=== PATIENT | female | born 1955 | race Caucasian/White ===

== ENCOUNTER 2018-01-18 14:15 | Emergency (ER) | payer OTHER, SELFPAY ==
[2018-01-18 14:15] VITALS: BP 178/101; PULSE 65; RESP 14; TEMP 36.3; O2SAT 100; BMI 24.9
--- NOTE | 2018-01-18 14:42 | RAD_ITS ---
STUDY: X-RAY - UNILATERAL RIBS ( RIGHT ) WITH CHEST REASON FOR EXAM: Female, 62 years old. Rib pain. TECHNIQUE - RIBS: 3 view(s) of the ribs. TECHNIQUE - CHEST: Single PA view of the chest. COMPARISON: Comparison is made with prior chest radiograph dated October 10, 2016. FINDINGS - RIBS: Normal visualized ribs without a demonstrated fracture. FINDINGS - CHEST: The lungs are clear and expanded. There is no demonstrated pleural abnormality. Normal size heart. Normal mediastinum and alfredo. Normal visualized pulmonary arteries. There is atherosclerotic tortuosity of the aortic arch and descending thoracic aorta. There are diffuse degenerative changes of the visualized thoracic spine. Normal visualized ribs, clavicles, and shoulders. Surgical clips are seen in the left upper abdomen. RAD/Ribs Uni Min 3V w/PA Chest IMPRESSION: RIBS: Normal x-ray examination of the ribs. CHEST: Normal x-ray examination of the chest. Electronically Signed: Gorge Diop MD at 15:16 EDT Tel [phone], Service support ,
--- NOTE | 2018-01-18 14:49 | ED.DCSUM_ITS ---
- ER Visit Summary Date of Service: 01/18/18 Chief Complaint: Chest pain History of Present Illness: The patient is a 62 F who states that on Sunday ( this being Sunday) she was in the yard doing mulch work when she felt a sudden pop and pain in her right mid ribs in the mid axillary line. She states it has been very sharp and worse when she moves her arm takes a deep breath and pushes on her rib. She notes a very minimal cough which is not unusual for her. No fevers. She denies any rash in the area. Physical Examination: Afebrile vital signs are stable Gen: Well-nourished well-developed Head: Normocephalic atraumatic Eyes: Perrl EOMI ENT: TMs clear no rhinorrhea moist mucous membranes Neck: Supple no lymphadenopathy no JVD nontender CVS: Regular rate rhythm no murmurs normal S1-S2 Respiratory: No distress clear to auscultation bilaterally patient has point tenderness in the right mid axillary line at about rib #5. This exactly reproduces her pain when I push on it. Abdomen: Soft nontender nondistended normal bowel sounds no masses Back: Nontender Extremity: Nontender no edema Skin: Normal color no rash Neuro: alert orientated ?3 CN II-XII intact normal strength sensation reflexes gait cerebellar Psych: Normal affect normal mood Test Results: Rib series was obtained and is negative for fracture. Emergency Department Course and Treatment: Patient will be discharged home with supportive care. Instructions for anti-inflammatories. Follow-up with primary care return if worsening. Impression: 1. Right chest wall strain This note was generated with [employer] dictation software. It may contain incorrect words, spelling, and punctuation that were not noted in review of the chart prior to signing ED Disposition - Plan for ED Patient: Disposition: Home or Assisted Living Chief Complaint: Chest Other Instructions: ED Strain Chest Wall Referrals: Lexi Newby DO [Primary Care Provider] - 1 Week if not improving
[2018-01-18 15:41] VITALS: BP 162/84; PULSE 83; RESP 18; O2SAT 99
== END 2018-01-18 15:42 | disposition home or self-care (01) ==
PROVIDERS: Emergency Provider Emergency Medicine
DX: S29.012A Strain of muscle and tendon of back wall of thorax, initial encounter (principal); X50.1XXA Overexertion from prolonged static or awkward postures, initial encounter; Y93.H2 Activity, gardening and landscaping; Y92.007 Garden or yard of unspecified non-institutional (private) residence as the place of occurrence of the external cause; Y99.8 Other external cause status
CPT/HCPCS: 71101; 99282

== ENCOUNTER 2018-05-24 10:48 | Emergency (ER) | payer OTHER, SELFPAY ==
[2018-05-24 10:51] VITALS: BP 179/119; PULSE 131; RESP 28; TEMP 36.2; BMI 22.7
--- NOTE | 2018-05-24 11:08 | ED.VISSUMM ---
- ER Visit Summary Date of Service: 05/24/18 Chief Complaint: Right third finger injury History of Present Illness: The patient is a 62 F presents to the emergency department with right third finger injury. The patient was using hedge clippers. She states that the branch was stuck and she reached, and accidentally incised the tip of her right third finger. She is right-hand dominant. She is unsure of her last tetanus. She denies other injury. Patient is otherwise healthy. She only takes daily multivitamins. Physical Examination: Exam is relatively unremarkable. Patient does have a 2 cm full-thickness laceration at the lateral aspect of the distal tip of the right third. It does involve the nail. 2 point discrimination is preserved. She is able to flex and extend. Capillary refill is less than 2 seconds. No other injury through the hand. Test Results: [] Emergency Department Course and Treatment: Patient underwent digital block immediately after she was evaluated. She did have significant relief of her pain. Tetanus is updated. Patient underwent plain films of the finger. She does have evidence of an open tuft fracture. The wound was irrigated with 300 cc of normal saline. I did scrub it with a surgical scrub brush. The nail was pulled back. I did trim the area that had avulsed. 2 5-0 gut sutures were used to close the nailbed. I then used 6 simple 5-0 Ethilon sutures to close the laceration. I did prison classification counselor the patient that there is concern that she may lose the tissue coverage of the distal tip because of the compromised blood supply, but there is good bone coverage at this time. I am going to give her follow-up with both plastics and orthopedics for reevaluation. Her tetanus is updated. She will be continued on oral antibiotics. I did prison classification counselor her that if her symptoms are worsening at all over the next 48 hours or not improving she needs to have this reevaluated. She is comfortable with this plan of care. Treatment Plan: [] Disposition: Discharge Impression: 1. Open tuft fracture right third finger with repair 2. Nailbed laceration right third finger with repair This note was generated with [employer] software. It may contain incorrect words, spelling, and punctuation that were not noted in review of the chart prior to signing ED Disposition - Plan for ED Patient: Chief Complaint: Wound Instructions: ED Fx Finger Open, ED Avulsion Nail Partial Prescriptions: Hydrocodone Bitart/Apap 5-325 [Scio 5MG-325MG] 1 tab PO Q6H PRN PRN 3 Days #10 tab PRN Reason: Pain Cephalexin [Keflex] 500 mg PO Q6 #40 cap Referrals: Saji Arauz MD [STAFF PHYSICIAN] - 2 Days for wound check Erlin Schaefer MD [STAFF PHYSICIAN] -
--- NOTE | 2018-05-24 11:10 | RAD_ITS ---
STUDY: X-RAY - RIGHT HAND REASON FOR EXAM: Female, 62 years old. Laceration overlying the distal portion of the third digit. TECHNIQUE: 3 view(s) of the hand. COMPARISON: None. FINDINGS: Normal radiocarpal articulation. Normal distal radioulnar joint. Normal visualized carpal bones. Normal carpal articulations Normal carpometacarpal articulation of the thumb. Normal second through fifth carpometacarpal joints. Normal metacarpi. Normal metacarpophalangeal joint of the thumb. Normal interphalangeal joint of the thumb. Normal proximal and distal phalanges of the thumb. Normal metacarpophalangeal joints of the second through fifth fingers. Normal proximal and distal interphalangeal joints of the second through fifth fingers. Nondisplaced fracture of the tuft of the distal phalanx of the third digit. Soft tissue swelling. No radiopaque foreign body is seen. RAD/Hand Min 3 Views IMPRESSION: Nondisplaced fracture of the tuft of the distal phalanx of the third digit. Electronically Signed: Gorge Diop MD at 15:07 EDT Tel [phone], Service support ,
[2018-05-24] MEDS: Diphth,Pertuss(Acell),Tet Vac 0.5 ML Vial IM (11:30)
[2018-05-24 11:31] VITALS: BP 140/102; PULSE 70; RESP 15; O2SAT 98
[2018-05-24] MEDS: Cephalexin 250 MG Capsule 500 MG PO (12:23)
[2018-05-24 12:26] VITALS: RESP 17
== END 2018-05-24 12:28 | disposition home or self-care (01) ==
LOC: ED 11:27
PROVIDERS: Emergency Provider Emergency Medicine
DX: S62.632B Displaced fracture of distal phalanx of right middle finger, initial encounter for open fracture (principal); S61.312A Laceration without foreign body of right middle finger with damage to nail, initial encounter; W26.8XXA Contact with other sharp object(s), not elsewhere classified, initial encounter; Y93.H2 Activity, gardening and landscaping
CPT/HCPCS: 11760; 73130; 90471; 90715; 99284

== ENCOUNTER 2019-07-28 11:17 | Emergency (ER) | payer OTHER, SELFPAY ==
[2019-07-28 11:18] VITALS: BP 168/80; PULSE 94; RESP 16; TEMP 36.3; O2SAT 98; BMI 23.3
--- NOTE | 2019-07-28 11:37 | RAD_ITS ---
STUDY: X-RAY - ACUTE ABDOMINAL SERIES REASON FOR EXAM: Female, 63 years old. Abdominal pain with nausea. TECHNIQUE: Single view of the chest. Supine, and erect view(s) of the abdomen were obtained. COMPARISON: None. FINDINGS: Comparison is made with prior chest radiograph dated January 18, 2018. The lungs are clear and expanded. Normal size heart. Normal mediastinum and alfredo. Normal visualized pulmonary arteries. There is atherosclerotic tortuosity of the aortic arch and descending thoracic aorta. There is a moderate amount of colonic fecal material. Surgical clips are seen in the epigastric region as well as in the left hemiabdomen. Prior tubal ligation. There are diffuse degenerative changes of the visualized lumbar spine. RAD/Acute Abdomen Inc Chest IMPRESSION: No acute abnormality is seen. Electronically Signed: Gorge Diop, at 12:27 EST , Service support ,
--- NOTE | 2019-07-28 11:37 | EKG12_ITS ---
Test Reason : AB PAIN Blood Pressure : / mmHG Vent. Rate : 079 BPM Atrial Rate : 079 BPM P-R Int : 126 ms QRS Dur : 078 ms QT Int : 374 ms P-R-T Axes : 026 027 046 degrees QTc Int : 428 ms Normal sinus rhythm Normal ECG Confirmed by EDGAR BIRD, AMBER ([id number]), newspaper photo editor KATE MCCLENDON ([id number]) on 07/30/2019 2:04:00 PM Referred By: TASIA SORIANO Confirmed By:AMBER HERNÁNDEZ MD
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
[2019-07-28 11:46] LABS: Absolute Lymphocyte Count 2.27 X10^3/uL (0.83-4.51); Absolute Neutrophil Count 5.9 X10^3/uL (2.0-7.7); Basophil# 0.07 X10^3/uL; Basophil% 0.7 % (0-1); Eosinophil# 0.11 X10^3/uL; Eosinophils% 1.1 % (0-5); Hematocrit 42.2 % (37-47); Hemoglobin 13.8 g/dL (12.0-15.0); Lymphocyte # 2.27 X10^3/ul (4.0); Lymphocyte % 23.7 % (19-41); Mean Corp Hgb Conc 32.7 g/dL (32-36); Mean Corpuscular Hgb 30.4 pg (27.0-32.0); Mean Platelet Vol. 10.2 fl (6.2-12.0); Monocyte# 1.18 X10^3/uL; Monocyte% 12.3 % (0-10); NRBC Flagged by Analyzer 0 % (0-5); Neutrophil # 5.93 X10^3/uL (2.7-7.7); Neutrophil % 61.9 % (47-70); Platelet Count 326 K/mm3 (150-450); RBC Distribution Width SD 44.6 fl (35.1-43.9); Red Blood Count 4.54 M/mm3 (4.2-5.4); White Blood Count 9.6 K/mm3 (4.4-11.0)
[2019-07-28] MEDS: 0.9% Normal Saline 1,000 ML 150 ML IV (12:18)
[2019-07-28 12:19] VITALS: BP 133/84; PULSE 66; RESP 14; O2SAT 98
[2019-07-28 12:24] LABS: AST(SGOT) 17 U/L (15-37); Alanine Aminotransfer ALT/SGPT 26 U/L (13-56); Albumin, Serum 3.8 g/dL (3.2-5.0); Alkaline Phosphatase 99 U/L (45-117); Anion Gap 8 (5-15); BUN 17 mg/dL (7-18); BUN/Creat Ratio 21.9 RATIO (10-20); Bilirubin, Direct 0.08 mg/dL (0.00-0.30); Calcium,Total 8.8 mg/dL (8.5-10.1); Chloride 106 mmol/L (98-107); Creatinine, Serum 0.78 mg/dL (0.55-1.02); EST Glomerular Filtration Rate 79 mL/min (>60); Est Glom Filt Rate - Afr Amer 96 mL/min (>60); Estimated Creatinine Clearance 54.98 ml/min; Globulin 4.1 g/dL (2.2-4.2); Glucose 43 mg/dL (74-106); Lipase 80 U/L (73-393); Potassium 3.5 mmol/L (3.5-5.1); Protein, Total 7.9 g/dL (6.4-8.2); Sodium Level 142 mmol/L (136-145)
[2019-07-28] MEDS: Dextrose 50%-Water 25 GM/50 ML DISP.SYRIN IV (12:25)
[2019-07-28 12:55] LABS: Bedside Glucose 216 mg/dL (70-110)
[2019-07-28 14:03] VITALS: BP 166/99; PULSE 58; RESP 16
[2019-07-28 14:06] LABS: Bedside Glucose 143 mg/dL (70-110)
== END 2019-07-28 14:03 | disposition home or self-care (01) ==
PROVIDERS: Emergency Provider Emergency Medicine; PCP Family Medicine
DX: R10.9 Unspecified abdominal pain (principal); K21.9 Gastro-esophageal reflux disease without esophagitis; I10 Essential (primary) hypertension; E78.5 Hyperlipidemia, unspecified; Z87.891 Personal history of nicotine dependence
CPT/HCPCS: 74022; 80048; 80076; 82962; 83690; 84484; 85025; 93005; 96365; 96375; 99285; J7030

== ENCOUNTER → 2020-09-14 13:50 | Outpatient (CLI) | payer MEDICARE, SELFPAY ==
--- NOTE | 2020-09-14 14:00 | BD_ITS ---
STUDY: DUAL ENERGY X-RAY ABSORPTIOMETRY / DXA REASON FOR EXAM: Female, 64 years old. [employer] -- HX OF SMOKING -- TAKES CALCIUM AND MULTIVITAMIN -- DOES HIGH AMOUNT OF EXERCISE -- HX OF FINGER FX -- BERTHA OF 2 INCHES TECHNIQUE: Bone Mineral Density (BMD) measurements of lumbar spine and bilateral hips were obtained. COMPARISON: None. FINDINGS: Lumbar Spine (L1-L4): g/cm2 (0.968) / T-score (-1.8) / Z-score (-0.2) Findings are suggestive of osteopenia with a moderate fracture risk. Left Femur Total: g/cm2 (0.789) / T-score (-1.7) / Z-score (-0.5) Left Femoral Neck: g/cm2 (0.734) / T-score (-2.2) / Z-score (-0.7) Right Femur Total: g/cm2 (0.769) / T-score (-1.9) / Z-score (-0.7) Right Femoral Neck: g/cm2 (0.724) / T-score (-2.3) / Z-score (-0.8) BD/Dexa Bone Density Study IMPRESSION: The patient is considered osteopenic as outlined below according to World [employer] Organization (WHO) criteria with a high fracture risk. Reference Information: The T-score is the number of standard deviations above or below the standard which is normal for young adults at their peak bone mineral density. The World Health Organization (WHO) interprets the T-scores as follows: Above -1 Normal bone density Between -1 and -2.5 Osteopenia Equal to / or below -2.5 Osteoporosis As a practical clinical guideline, osteopenia may be graded as follows: Mild -1 through -1.5 Moderate -1.6 through -2.0 Severe -2.1 through -2.4 The Z-score is the number of standard deviations above or below age-matched controls. A Z-score of less than -1.5 would be considered abnormal. References: 1. NIH Osteoporosis and Related Bone Diseases www osteo.org 2. International Society for Clinical Densitometry www iscd.org 3. National Osteoporosis Foundation www nof.org Electronically Signed: Gorge Diop, at 15:35 EST , Service support ,
== END ==
PROVIDERS: PCP Family Medicine; Referring Provider Family Medicine; Visit Provider Family Medicine
DX: M81.0 Age-related osteoporosis without current pathological fracture (principal)
CPT/HCPCS: 77080

== ENCOUNTER 2021-09-16 22:41 | Emergency (ER) | payer MEDICARE, SELFPAY ==
[2021-09-16 22:42] VITALS: BP 152/103; PULSE 93; RESP 15; TEMP 36.4; O2SAT 99; BMI 25.2
--- NOTE | 2021-09-16 23:07 | CT_ITS ---
STUDY: CT BRAIN WITHOUT CONTRAST REASON FOR EXAM: Female, 65 years old. head injury RADIATION DOSAGE (If Supplied By Facility): CTDIvol = ( 44.99 ) mGy, DLP = ( 812.98 ) mGycm TECHNIQUE: Transaxial CT imaging of the brain was performed without administration of intravenous contrast material. Individualized dose optimization techniques were used for this CT. COMPARISON: No relevant priors. FINDINGS: Normal soft tissue structures. Normal calvarium. Partially empty sella Normal size ventricles and extra-axial spaces for the patient''s age. Normal white matter tracts of the cerebral hemispheres. Normal basal ganglia and thalami. Normal brainstem. Normal cerebellum. There is no intracranial hemorrhage. There are no findings of an acute ischemic infarction. Normal visualized paranasal sinuses. CT/Brain/Head without Contrast IMPRESSION: Normal unenhanced CT scan of the brain. Electronically Signed: Preet Thibodeaux DO at 23:51 EST Tel , Service support ,
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
[2021-09-17 00:02] VITALS: BP 169/101
== END 2021-09-17 00:21 | disposition home or self-care (01) ==
PROVIDERS: Emergency Provider Emergency Medicine; PCP Family Medicine; Visit Provider Emergency Medicine
DX: S01.01XA Laceration without foreign body of scalp, initial encounter (principal); W19.XXXA Unspecified fall, initial encounter; Z87.891 Personal history of nicotine dependence
CPT/HCPCS: 12002; 70450; 99282

== ENCOUNTER → 2022-08-07 | Outpatient (CLI) | payer MEDICARE, SELFPAY ==
[2022-08-07 09:35] LABS: Erythrocyte Sedimentation Rate 13 mm/hr (0-30)
[2022-08-07 09:37] LABS: Absolute Lymphocyte Count 1.96 X10^3/uL (0.83-4.51); Absolute Neutrophil Count 3.6 X10^3/uL (2.0-7.7); Basophil# 0.07 X10^3/uL; Basophil% 1.1 % (0-1); Eosinophil# 0.13 X10^3/uL; Hematocrit 42.3 % (37-47); Hemoglobin 13.5 g/dL (12.0-15.0); Lymphocyte # 1.96 X10^3/ul (0.83-4.51); Lymphocyte % 30.5 % (19-41); Mean Corp Hgb Conc 31.9 g/dL (32-36); Mean Corpuscular Hgb 29.5 pg (27.0-32.0); Mean Corpuscular Volume 92.4 fL (81-99); Mean Platelet Vol. 10.6 fl (6.2-12.0); Monocyte# 0.66 X10^3/uL; Monocyte% 10.3 % (0-10); NRBC Flagged by Analyzer 0 % (0-5); Neutrophil # 3.58 X10^3/uL (2.7-7.7); Neutrophil % 55.8 % (47-70); Platelet Count 291 K/mm3 (150-450); RBC Distribution Width CV 13.5 % (11.6-14.6); RBC Distribution Width SD 45.8 fl (35.1-43.9); Red Blood Count 4.58 M/mm3 (4.2-5.4); White Blood Count 6.4 K/mm3 (4.4-11.0)
[2022-08-07 09:57] LABS: AST(SGOT) 19 U/L (15-37); Alanine Aminotransfer ALT/SGPT 27 U/L (13-56); Albumin, Serum 3.9 g/dL (3.2-5.0); Alkaline Phosphatase 100 U/L (45-117); Anion Gap 4 (5-15); BUN 19 mg/dL (7-18); BUN/Creat Ratio 26.6 RATIO (10-20); Calcium,Total 8.9 mg/dL (8.5-10.1); Chloride 104 mmol/L (98-107); Creatinine, Serum 0.71 mg/dL (0.55-1.02); EST Glomerular Filtration Rate 87 mL/min (>60); Est Glom Filt Rate - Afr Amer 105 mL/min (>60); Glucose 102 mg/dL (74-106); LDH 199 U/L (84-246); Potassium 4.1 mmol/L (3.5-5.1); Protein, Total 7.9 g/dL (6.4-8.2); Sodium Level 138 mmol/L (136-145)
[2022-08-07 09:58] LABS: CRP < 2.90 mg/L (0.0-3.0)
[2022-08-08 14:08] LABS: Anti-Centromere B Ab <0.2 AI (0.0-0.9); Anti-Chromatin <0.2 AI (0.0-0.9); Anti-Jo <0.2 AI (0.0-0.9); Anti-Scleroderma-70 AB >8.0 AI (0.0-0.9); RNP Ab <0.2 AI (0.0-0.9); SJOGREN'S Anti-SS-A test < 0.2 AI (0.0-0.9); SJOGREN'S Anti-SS-B test < 0.2 AI (0.0-0.9); Smith Ab <0.2 AI (0.0-0.9)
[2022-08-08 16:06] LABS: Anti-dsDNA Ab <1 IU/mL (0-9)
[2022-08-08 16:09] LABS: Endomysial Antibody IgA Negative (Negative)
[2022-08-08 16:33] LABS: Immunoglobulin A 151 mg/dL (87-352); t-Transglutaminase IgA <2 U/mL (0-3)
[2022-08-11 12:08] LABS: Alpha-1-Globulins 0.2 g/dL (0.0-0.4); Alpha-2-Globulins 0.7 g/dL (0.4-1.0); Cytoplasmic Ab (C-ANCA) <1:20 titer (Neg:<1:20); Gamma Globulin 1.3 g/dL (0.4-1.8); Immunoglobulin A 143 mg/dL (87-352); Immunoglobulin E 16 IU/mL (6-495); Immunoglobulin G 1274 mg/dL (586-1602); Immunoglobulin M 73 mg/dL (26-217); PROEL- TOTAL PROTEIN 7.3 g/dL (6.0-8.5)
[2022-08-11 18:30] LABS: Perinuclear Ab (P-ANCA) <1:20 titer (Neg:<1:20)
== END | disposition home or self-care (01) ==
LOC: LAB 09:11
PROVIDERS: PCP Family Medicine; Referring Provider Nurse Practitioner Adult Health; Visit Provider Nurse Practitioner Adult Health
DX: R10.30 Lower abdominal pain, unspecified (principal); M34.9 Systemic sclerosis, unspecified; R13.10 Dysphagia, unspecified; R11.0 Nausea
CPT/HCPCS: 36415; 80053; 82784; 82785; 83516; 83615; 84165; 85025; 85652; 86140; 86225; 86235; 86255; 86256; 86334

== ENCOUNTER → 2022-08-14 | Outpatient (CLI) | payer MEDICARE, SELFPAY ==
--- NOTE | 2022-08-14 09:45 | RAD_ITS ---
STUDY: X-RAY - ESOPHAGUS (BARIUM SWALLOW) WITH FLUOROSCOPY REASON FOR EXAM: Female, 66 years old. Dysphagia, scleroderma TECHNIQUE: 15 view(s) of the esophagus were obtained following swallowing of barium. FLUOROSCOPY TIME (if supplied): (30 seconds) minutes/seconds COMPARISON: Comparison is made with prior study dated 09/07/2015. FINDINGS: There is no demonstrated esophageal foreign body. There is evidence of a decreased peristaltic movement throughout the esophagus. Small sliding hernia with gas esophageal reflux. The patient ingested a 12 mm tablet of barium without any difficulty. There is atherosclerotic calcification of the aortic arch with tortuosity of the descending aorta. Normal visualized pulmonary parenchyma. There are diffuse degenerative changes of the visualized thoracic spine. RAD/Esophagus Dual Contrast IMPRESSION: Decreased peristaltic movement of the esophagus with the gastroesophageal reflux. Electronically Signed: Gorge Diop MD at 14:24 EST ,
== END | disposition home or self-care (01) ==
LOC: RAD 09:37
PROVIDERS: PCP Family Medicine; Visit Provider Nurse Practitioner Adult Health
DX: R13.10 Dysphagia, unspecified (principal); M34.9 Systemic sclerosis, unspecified
CPT/HCPCS: 74221

== ENCOUNTER → 2022-09-05 | Outpatient (CLI) | payer MEDICARE, SELFPAY ==
--- NOTE | 2022-09-05 17:40 | CT_ITS ---
STUDY: CT ABDOMEN AND PELVIS WITH CONTRAST REASON FOR EXAM: Female, 66 years old. lower abd pain -- oral and iv RADIATION DOSAGE (If Supplied By Facility): CTDIvol = ( 10.58 ) mGy, DLP = ( 370.79 ) mGycm TECHNIQUE: Transaxial images were obtained from the dome of the diaphragm to the symphysis pubis with oral contrast. IV 100mL [id number]-[id number] was administered. Sagittal and coronal images were reconstructed. Individualized dose optimization techniques were used for this CT. COMPARISON: And 814 FINDINGS: The visualized lung bases are unremarkable. The visualized portions of the heart are within normal limits. Normal liver. Normal gallbladder and extrahepatic biliary system. Normal spleen. Normal pancreas. Normal bilateral adrenal glands. 4.5 cm cyst in the midsection the right kidney. Normal left kidney. There is a small hiatal hernia. Status post gastric surgery, possibly gastric bypass. Normal small intestine. Normal colon. There is non-visualization of the appendix. Normal abdominal aorta. Normal inferior vena cava. Normal retroperitoneum. Normal urinary bladder. Status post bilateral tubal ligation. Normal abdominal wall. Normal osseous structures. CT/Abdomen/Pelvis WITH Contrast IMPRESSION: No acute abnormality. Electronically Signed: Matteo Machado MD at 18:25 [facility] ,
== END | disposition home or self-care (01) ==
LOC: CT 17:37
PROVIDERS: PCP Family Medicine; Visit Provider Nurse Practitioner Adult Health
DX: R10.30 Lower abdominal pain, unspecified (principal)
CPT/HCPCS: 74177; Q9967

== ENCOUNTER 2022-10-03 12:10 | Day surgery (SDC) | payer MEDICARE, SELFPAY ==
[2022-10-03] VITALS (7 sets, daily range): BP systolic 98–142; BP diastolic 51–99; PULSE 47–74; RESP 12–18; TEMP 36.1–36.4; O2SAT 97–100; BMI 23.4
[2022-10-03] MEDS: Lactated Ringers 1,000 ML 15 ML IV (12:36)
--- NOTE | 2022-10-03 13:22 | HP.PCM_ITS ---
History and Physical Date of Admission: 10/03/22 66 F who presents to the office today for choking when eating, heartburn, abdominal pain. Symptoms have been bothersome for about 6 months. Nausea especially in morning, takes occasional pepto bismol with partial relief; can have intermittent nausea other times of the day too. No vomiting. A thick white acidic mucus was coming up at night, less so now. Gets full quickly, not a new issue--since having Bailey en Y in 2012. Takes esomeprazole 40 mg daily but it doesn't help with her symptoms. Gets heartburn. Couldn't tolerate sucralfate pills, too big, and liquid sucralfate was too expensive; so she tried crushing the pill and putting it in small amt of liquid but no relief after 3 wks. Food feels like it gets stuck in the lower esophagus. Had dilation of esophageal stricture once years ago. She tried to have esophageal manometry once but didn't tolerate it. She has scleroderma, CREST. Hx of Allen's esophagus; no Allen's on biopsy at her last EGD in 2020. Intermittent grabbing pain 2-3x per day in lower abdomen, x years, has gotten worse, others have noticed when it occurs. This pain can wake her up. Not related to BMs, no pattern she can discern. BM 2-3x every morning. Stool is usually formed. No melena or hematochezia. Lots of stress right now. 11/3020 EGD--esophageal changes consistent with short segment Allen's; evidence of gastric bypass; examined jejunum was normal; biopsies from gastric remnant negative, no H pylori; negative for Allen's; and colonoscopy--Dr Quiles at [facility] reported entire colon appeared normal, recommended repeat in 5 yrs for surveillance due to FH colon cancer. Mother had colon cancer age 80. ROS Const Constitutional: No fatigue ENT ENT: Positive for difficulty swallowing Gastro GI: Positive for abdominal pain, heartburn, difficulty swallowing and nausea/dyspepsia; No belching, bloating, change in bowel habits, change in stool character, coffee ground emesis, constipation, cramping, diarrhea, feeling full early, excessive flatus, incontinent of stools, Vomiting blood/hematemesis, Blood in stool, loose stools, Black,tarry stools, pain with swallowing, vomiting or other Musc Musculoskeletal: No joint pain Skin Skin: No yellowing of the eye or itchy eyes Psych Psychiatric: No anxiety and No depression Endo Endocrine: No fatigue Aller/Imm Allergy/Immunologic: No itchy eyes Rylan/Lymp Hematologic/Lymphatic: No easy bleeding or easy bruising Exam Const General: cooperative and comfortable Orientation: alert, awake and oriented x3 HENMT Other: scleroderma facies, mild Eyes Conjunctivae: conjunctivae normal Sclera: sclerae normal Resp Effort & Inspection: normal respiratory effort GI Inspection: normal to inspection Palpation: soft, no hepatosplenomegaly, no masses and tender in the LLQ, in the RLQ and in the LUQ Neuro Gait: normal gait Quality Reporting Tobacco Screening ([facility] 138) Smoking Status: Former smoker Assessment and Plan Assessment and Plan (1) Dysphagia: ?Status:?Acute ?Plan: 66 yr old female with GERD, hx Allen's, dysphagia, hx esophageal stricture, scleroderma, abdominal pain. EGD to eval for Allen's, stricture, dysmotility. May need manometry, especially in the setting of scleroderma, will decide after EGD. Esophagram to eval for achalasia Increase esomeprazole from 20 mg to 40 mg QAM Labs today CT abd pel w/ oral and IV contrast to evaluate lower abdominal pain f/u after EGD (2) Systemic sclerosis: ?Status:?Chronic ?Plan: as above (3) Abdominal pain, lower: ?Status:?Acute ?Plan: as above (4) Nausea: ?Status:?Acute ?Plan: as above ? ? ? Orders: Orders Esophagus Dual Contrast Today M34.9 - Systemic sclerosis, unspecified, R13.10 - Dysphagia, unspecified ? Comprehensive Metabolic Profil Today M34.9 - Systemic sclerosis, unspecified, R10.30 - Lower abdominal pain, unspecified, R11.0 - Nausea, R13.10 - Dysphagia, unspecified ? CRP Today M34.9 - Systemic sclerosis, unspecified, R10.30 - Lower abdominal pain, unspecified, R11.0 - Nausea, R13.10 - Dysphagia, unspecified ? LDH Today M34.9 - Systemic sclerosis, unspecified, R10.30 - Lower abdominal pain, unspecified, R11.0 - Nausea, R13.10 - Dysphagia, unspecified ? CBC W/Diff, Automated Today I10 - Essential (primary) hypertension, M34.9 - Systemic sclerosis, unspecified, R10.30 - Lower abdominal pain, unspecified, R11.0 - Nausea, R13.10 - Dysphagia, unspecified ? Erythrocyte Sed Rate Today M34.9 - Systemic sclerosis, unspecified, R10.30 - Lower abdominal pain, unspecified, R11.0 - Nausea, R13.10 - Dysphagia, unspecified ? [place] Comprehensive Panel Today M34.9 - Systemic sclerosis, unspecified, R10.30 - Lower abdominal pain, unspecified, R11.0 - Nausea, R13.10 - Dysphagia, unspecified ? ANCA Today M34.9 - Systemic sclerosis, unspecified, R10.30 - Lower abdominal pain, unspecified, R11.0 - Nausea, R13.10 - Dysphagia, unspecified ? Celiac Disease Profile Today M34.9 - Systemic sclerosis, unspecified, R10.30 - Lower abdominal pain, unspecified, R11.0 - Nausea, R13.10 - Dysphagia, unspecified ? Immunoglobulins G/A/M/E Today M34.9 - Systemic sclerosis, unspecified, R10.30 - Lower abdominal pain, unspecified, R11.0 - Nausea, R13.10 - Dysphagia, unspecified ? ANDREA + Protein Elect, Serum Today M34.9 - Systemic sclerosis, unspecified, R10.30 - Lower abdominal pain, unspecified, R11.0 - Nausea, R13.10 - Dysphagia, unspecified ? Medications: New esomeprazole magnesium 40 mg? PO QAM 90 caps 3RF ? ? I have examined the patient and the H&P has been reviewed. There are no clinical changes since date of exam.
--- NOTE | 2022-10-03 13:30 | EGD_PTH ---
PATIENT: LUIS FRAGA LOC: EN U#:[id number] AGE/SX: 66/F ROOM: RE10/03/[address]: Dr. Lavon Lewis DO : 1955 BED: DIS: 10/03/2022 SPEC #: [id number] RECD: 10/03/22 17:05 STATUS: DEBBIE MARTÍN #: [id number] DINORAH: 10/03/22 13:[address]: Lavon Lewis DEPT: SURGICAL PATHOLOGY RECD BY: Heather Lepe ENTERED: 10/04/22 08:32 SP TYPE: EGD BIOPSY [facility] DR: Dr. Theo Ma MD Tissues: A - COLON BIOPSY B - Esophagus, NOS Procedures: Special Stain Group II Special Stain Group I Surgery Specimen Level IV GMS Stain (control) Alcian Blue/PAS (control) HEADER OPERATION: EGD ([facility] [place] biopsy PRE-OP DIAGNOSIS: Dysphagia, system sclerosis, lower abdominal pain TISSUE SUBMITTED: A ? Anastomosis ulcer biopsy, B ? Distal esophagus biopsy MICROSCOPIC DIAGNOSIS A. Anastomotic ulcer, biopsy: Fragments of gastric enteric tissue with focal mucosal ulceration and associated acute and chronic inflammation. Fungal organisms consistent with Lorrie species. See comment. B. Distal esophagus, biopsy: Gastroesophageal junctional mucosa with chronic inflammation. No evidence of goblet cell metaplasia. See comment. AM:beni 10/05/2022 COMMENT A. GMS stain with matched control was used in the evaluation of this case. B. Alcian blue/PAS stain with matched control supports the above diagnosis. MICROSCOPIC DESCRIPTION Slides are reviewed. GROSS DESCRIPTION A - Received in fixative is one container labeled with the patient's name and designated anastomosis ulcer. The specimen consists of two irregular fragments of light rutledge soft tissue that in aggregate measure 0.8 x 0.4 x 0.1 cm. The specimen is totally submitted in one cassette. B - Received in fixative is one container labeled with the patient's name and designated distal esophagus. The specimen consists of multiple irregular fragments of light rutledge soft tissue that in aggregate measure 0.8 x 0.4 x 0.1 cm. The specimen is totally submitted in one cassette. / YURY:beni 10/04/2022 TC:3 CPT: 47470 x2, 99024, 76578
--- NOTE | 2022-10-03 14:20 | OP.EGD_ITS ---
Patient Name: Letty Londono Procedure Date: 10/03/2022 1:17 PM Date of : 1955 Age: 66 Procedure: Upper GI endoscopy Indications: Epigastric abdominal pain, Dysphagia Providers: Lavon Lewis DO Medicines: Monitored Anesthesia Care Patient Profile: This is a 66 year old female. Refer to note in patient chart for documentation of history and physical. Patient has symptoms of acute epigastric abdominal pain and dysphagia with solids. Complications: No immediate complications. Procedure: Pre-Anesthesia Assessment: - Prior to the procedure, a History and Physical was performed, and patient medications and allergies were reviewed. The risks and benefits of the procedure and the sedation options and risks were discussed with the patient. All questions were answered and informed consent was obtained. Patient identification and proposed procedure were verified by the physician in the pre-procedure area. Mental Status Examination: alert and oriented. Airway Examination: normal oropharyngeal airway and neck mobility. CV Examination: normal. Prophylactic Antibiotics: The patient does not require prophylactic antibiotics. Prior Anticoagulants: The patient has taken no previous anticoagulant or antiplatelet agents. ASA Grade Assessment: II - A patient with mild systemic disease. After reviewing the risks and benefits, the patient was deemed in satisfactory condition to undergo the procedure. The anesthesia plan was to use monitored anesthesia care (MAC). Immediately prior to administration of medications, the patient was re-assessed for adequacy to receive sedatives. The heart rate, respiratory rate, oxygen saturations, blood pressure, adequacy of pulmonary ventilation, and response to care were monitored throughout the procedure. The physical status of the patient was re-assessed after the procedure. After obtaining informed consent, the endoscope was passed under direct vision. Throughout the procedure, the patient's blood pressure, pulse, and oxygen saturations were monitored continuously. The gastroscope was introduced through the mouth, and advanced to the second part of duodenum. The upper GI endoscopy was accomplished without difficulty. The patient tolerated the procedure well. Scope In: 2:08:17 PM Scope Out: 2:12:33 PM Total Procedure Duration Time 0 hours 4 minutes 16 seconds Findings: LA Grade B (one or more mucosal breaks greater than 5 mm, not extending between the tops of two mucosal folds) esophagitis with no bleeding was found 35 to 36 cm from the incisors. Biopsies were taken with a cold forceps for histology. Verification of patient identification for the specimen was done. Estimated blood loss was minimal. 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 The gastrojejunal anastomosis was characterized by edema and ulceration. This was traversed. The xarzd-ol-awyvkxg limb was characterized by healthy appearing mucosa. The jejunojejunal anastomosis was characterized by healthy appearing mucosa. The wlhociil-lt-okiclta limb was not examined as it could not be found. One benign-appearing, intrinsic stenosis was found 20 to 21 cm from the incisors. This stenosis was moderately severe and. The stenosis was traversed. A guidewire was placed and the scope was withdrawn. Dilation was performed with a Savary dilator with no resistance at 42 Fr. The dilation site was examined and showed moderate improvement in luminal narrowing. Estimated blood loss was minimal. The examined jejunum was normal. Impression: - LA Grade B reflux esophagitis. Biopsied. - Bailey-en-Y gastrojejunostomy with gastrojejunal anastomosis characterized by edema and ulceration. - Benign-appearing esophageal stenosis. Dilated. - Normal examined jejunum. Recommendation: - Discharge patient to home. - Resume previous diet. - Continue present medications. - Await pathology results. - Repeat upper endoscopy in 5 months to evaluate the response to therapy. - Use misoprostol 100 micrograms PO QID for 12 weeks. Procedure Code(s): --- Professional --- 12568, Esophagogastroduodenoscopy, flexible, transoral; with insertion of guide wire followed by passage of dilator(s) through esophagus over guide wire 68608, 59, Esophagogastroduodenoscopy, flexible, transoral; with biopsy, single or multiple CPT copyright 2017 [employer]. All rights reserved. The codes documented in this report are preliminary and upon decorating instructor review may be revised to meet current compliance requirements. Lavon Lewis DO 10/03/2022 2:20:16 PM This report has been signed electronically. Number of Addenda: 0 Note Initiated On: 10/03/2022 1:17 PM
--- NOTE | 2022-10-03 14:21 | OP.CCLET_ITS ---
10/03/2022 Theo Ma MD Re : Upper GI endoscopy procedure for Letty Londono Dear Dr. Ma This procedure was performed on Monday, October 03, 2022. My impressions and recommendations are as follows: Impressions : - LA Grade B reflux esophagitis. Biopsied. - Bailey-en-Y gastrojejunostomy with gastrojejunal anastomosis characterized by edema and ulceration. - Benign-appearing esophageal stenosis. Dilated. - Normal examined jejunum. Recommendations : - Discharge patient to home. - Resume previous diet. - Continue present medications. - Await pathology results. - Repeat upper endoscopy in 5 months to evaluate the response to therapy. - Use misoprostol 100 micrograms PO QID for 12 weeks. My findings are described in the full procedure note, which is enclosed. If I can be of further assistance, please feel free to contact me at . Sincerely, Lavon Friend, 10/03/2022 2:20:16 PM This report has been signed electronically.
== END 2022-10-03 15:07 | disposition home or self-care (01) ==
LOC: EN 12:12 → AC 12:14
PROVIDERS: PCP Family Medicine; Referring Provider Family Medicine; Visit Provider Internal Medicine Gastroenterology
PROC: 0DJ08ZZ Inspection of Upper Intestinal Tract, Via Natural or Artificial Opening Endoscopic (ICD-10-PCS; CPT 43235; principal; 2022-10-03 13:25)
DX: K25.3 Acute gastric ulcer without hemorrhage or perforation (principal); K22.2 Esophageal obstruction; K25.7 Chronic gastric ulcer without hemorrhage or perforation; K21.00 Gastro-esophageal reflux disease with esophagitis, without bleeding; E61.1 Iron deficiency; Z79.899 Other long term (current) drug therapy; Z87.891 Personal history of nicotine dependence
CPT/HCPCS: 43248; 43239; 88305; 88312; 88313; J7120; J2405

== ENCOUNTER 2023-02-19 06:01 | Day surgery (SDC) | payer MEDICARE, SELFPAY ==
--- NOTE | 2023-02-19 | IMM_PTH ---
PATIENT: LUIS FRAGA LOC: EN U#:[id number] AGE/SX: 67/F ROOM: RE02/19/[address]: Dr. Lavon Lewis DO : 1955 BED: DIS: 02/19/2023 SPEC #: [id number] RECD: 02/20/23 12:56 STATUS: DEBBIE REQ #: [id number] DINORAH: 02/19/23 00:[address]: Lavon Lewis DEPT: IMMUNOHISTOCHEMISTRY RECD BY: Lottie Rosenthal ENTERED: 02/20/23 12:57 SP TYPE: IMMUNO OTHR DR: Dr. Theo Ma MD Tissues: Esophagus, NOS Procedures: P53 (initial) KI-67 (add) PHYSICIAN & INSTITUTION [place] [id number] SPECIMEN INFORMATION: Tissue Source: Distal esophagus Clinical Info: Gastrojejunal ulcer, GERD, Lorrie infection, difficulty swallowing Specimen Number: [id number] CPT code: 32183, 91720 METHODOLOGY: Deparaffinized sections of prefer/formalin-fixed tissue or PAP/DQ stained slides are incubated with monoclonal/polyclonal antibodies/oligonucleotide probes. Localization is made via biotin free immunoperoxidase method. Appropriate controls are performed and reacted as expected. Results on target cell population are indicated in the following table: RESULTS: ANTIBODY / CLONE RESULT P53 (DO-7) negative Ki-67 (30-9) positive, very low These tests were developed and their performance characteristics determined by [facility]. They may not have been cleared or approved by the U.S. Food and Drug Administration. The FDA has determined that such clearance or approval is not necessary. The above immunohistochemical/dualISH markers are ordered and reviewed by the Pathologist. INTERPRETATION: Distal esophagus, biopsy: Negative for dysplasia. YURY:beni 02/21/2023
[2023-02-19 06:29] VITALS: BP 141/80; PULSE 66; RESP 16; TEMP 36.2; O2SAT 97; BMI 24.4
[2023-02-19] MEDS: Lactated Ringers 1,000 ML 15 ML IV (06:29)
--- NOTE | 2023-02-19 07:09 | PCM.HP.BLA ---
History and Physical Date of Admission: 02/19/23 67 F who presents to the office today for f/u EGD that was indicated for heartburn, dysphagia, hx Allen's. EGD revealed LA grade B esophagitis, esophageal stenosis which Dr Lewis dilated, negative Allen's esophagus; edema and ulcerations at Bailey en Y gastrojejunostomy, biopsies there were positive for Lorrie, as well as acute and chronic inflammation. Dr Lewis recommended treatment with misoprostal 100 mcg QID x 12 wks but insurance denied it. Liquid sucralfate is cost prohibitive. She continues to have nausea especially in the morning. Heartburn is controlled. At her 07/2022 appt we increased esomeprazole from 20 mg to 40 mg QAM. No c/o abd pain at this time. Less dysphagia since Dr Lewis dilated stricture, less food sticking. No vomiting. BM 2-3x every morning. Stool is usually formed. No melena or hematochezia. 07/2022 labs: unremarkable, already know about scleroderma 08/2022 CT abd pel w/ oral and IV contrast: unremarkable 08/2022 Esophagram:?Decreased peristaltic movement of the esophagus with the gastroesophageal reflux. She tried to have esophageal manometry once but didn't tolerate it. She has scleroderma, CREST. 10/03/22 EGD Impression: ? - LA Grade B reflux esophagitis. Biopsied. ? - Bailey-en-Y gastrojejunostomy with ? gastrojejunal anastomosis characterized by ? edema and ulceration. ? - Benign-appearing esophageal stenosis. Dilated. ? - Normal examined jejunum. Recommendation: ? - Discharge patient to home. ? - Resume previous diet. ? - Continue present medications. ? - Await pathology results. ? - Repeat upper endoscopy in 5 months to ? evaluate the response to therapy. ? - Use misoprostol 100 micrograms PO QID for 12 ? weeks. MICROSCOPIC DIAGNOSIS A.? Anastomotic ulcer, biopsy: Fragments of gastric enteric tissue with focal mucosal ulceration and associated acute and chronic inflammation. ?Fungal organisms consistent with Lorrie species. ?See comment. B.? Distal esophagus, biopsy: ?Gastroesophageal junctional mucosa with chronic inflammation. ?No evidence of goblet cell metaplasia. ?See comment. ROS Const Constitutional: No fatigue ENT ENT: No difficulty swallowing Gastro GI: Positive for abdominal pain, change in bowel habits, diarrhea, heartburn and nausea/dyspepsia; No belching, bloating, change in stool character, coffee ground emesis, constipation, cramping, difficulty swallowing, feeling full early, excessive flatus, incontinent of stools, Vomiting blood/hematemesis, Blood in stool, loose stools, Black,tarry stools, pain with swallowing, vomiting or other Musc Musculoskeletal: Positive for back pain and restless legs; No joint pain Skin Skin: No yellowing of the eye or itchy eyes Neuro Neurology: Positive for restless legs Psych Psychiatric: No anxiety and No depression Endo Endocrine: No fatigue Aller/Imm Allergy/Immunologic: No itchy eyes Rylan/Lymp Hematologic/Lymphatic: No easy bleeding or easy bruising Exam Const General: cooperative, comfortable and no acute distress Nutritional Appearance: average body habitus Orientation: alert, awake and oriented x3 Quality Reporting Tobacco Screening ([facility] 138) Smoking Status: Former smoker Assessment and Plan Assessment and Plan (1) Gastrojejunal ulcer: ?Status:?Acute ?Plan: 67 yr old female with nausea, GERD, dysphagia gastrojejunal anastomotic ulcers and Lorrie We reviewed her EGD results as well as labs (unremarkable) and CT (unremarkable) and esophagram (decreased motility, due to CREST) Heartburn now controlled since esomeprazole increased to 40 mg QAM Dysphagia is improved since esophageal stricture was dilated She tried esophageal manometry in the past but didn't tolerate it, likely has esophageal dysmotility due to CREST, could consider trying manometry later Will treat Lorrie with fluconazole We need to treat her anastomotic ulcers with misoprostal, will try again to get that approved Repeat EGD [address] Lewis, f/u 2 wks in office to review results (2) GERD (gastroesophageal reflux disease): ?Status:?Chronic ?Plan: as above (3) Lorrie infection: ?Status:?Acute ?Plan: as above (4) Difficulty swallowing: ?Status:?Chronic ?Plan: as above ? ? ? Medications: New fluconazole 100 mg? PO DAILY 14 tabs 0RF ? ? misoprostol 100 mcg? PO QPCHS 12 weeks 336 tabs 0RF anastomotic ulcers ? ? Discontinued sucralfate ?? Take one hour before meals/meds or two hours after ?? Discontinued Reason:? Cost Prohibitive 10 mL? PO QAC 1,000 mL 1RF ? ? I have examined the patient and the H&P has been reviewed. There are no clinical changes since date of exam.
--- NOTE | 2023-02-19 07:15 | EGD_PTH ---
PATIENT: LUIS FRAGA LOC: EN U#:[id number] AGE/SX: 67/F ROOM: RE02/19/[address]: Dr. Lavon Lewis DO : 1955 BED: DIS: 02/19/2023 SPEC #: [id number] RECD: 02/19/23 09:37 STATUS: DEBBIE REYazan #: [id number] DINORAH: 02/19/23 07:[address]: Lavon Lewis DEPT: SURGICAL PATHOLOGY RECD BY: Heather Lepe ENTERED: 02/19/23 11:57 SP TYPE: EGD BIOPSY DHIRAJ DR: Dr. Theo Ma MD Tissues: Esophagus, NOS Procedures: Special Stain Group II Surgery Specimen Level IV Alcian Blue/PAS (control) HEADER OPERATION: EGD ([facility] [place] with biopsy PRE-OP DIAGNOSIS: Gastrojejunal ulcer; GERD; Lorrie infection; difficulty swallowing TISSUE SUBMITTED: Distal esophagus MICROSCOPIC DIAGNOSIS Distal esophagus, biopsy: Fragments of gastroesophageal mucosa with focal intestinal metaplasia (goblet cell metaplasia), consistent with Allen?s esophagus. Chronic inflammation. Negative for dysplasia. See comment. YURY:beni 02/20/2023 COMMENT Alcian blue/PAS stain with matched control is used in the evaluation of the specimen. Immunohistochemistry ([id number]) for P53 and Ki-67 will be performed and results will be reported separately. MICROSCOPIC DESCRIPTION Slides are reviewed. GROSS DESCRIPTION Received in fixative is one container labeled with the patient's name and designated distal esophagus. The specimen consists of multiple irregular fragments of light rutledge soft tissue that in aggregate measure 0.8 x 0.3 x 0.1 cm. The specimen is totally submitted in one cassette. / YURY:beni 02/19/2023 TC:5 CPT: 77775, 67479
[2023-02-19 07:24] VITALS: BP 141/80; BP 88/66; PULSE 61; RESP 14; TEMP 36.4; O2SAT 97
--- NOTE | 2023-02-19 07:24 | OP.EGD_ITS ---
Patient Name: Letty Londono Procedure Date: 02/19/2023 7:06 AM Date of : 1955 Age: 67 Procedure: Upper GI endoscopy Indications: Heartburn, Suspected esophageal reflux Providers: Lavon Lewis DO Medicines: Monitored Anesthesia Care Patient Profile: This is a 67 year old female. Refer to note in patient chart for documentation of history and physical. Patient has symptoms of chronic dysphagia, chronic heartburn and chronic nausea. Complications: No immediate complications. Procedure: Pre-Anesthesia Assessment: - Prior to the procedure, a History and Physical was performed, and patient medications and allergies were reviewed. The risks and benefits of the procedure and the sedation options and risks were discussed with the patient. All questions were answered and informed consent was obtained. Patient identification and proposed procedure were verified by the physician in the pre-procedure area. Mental Status Examination: alert and oriented. Airway Examination: normal oropharyngeal airway and neck mobility. Respiratory Examination: clear to auscultation. CV Examination: normal. Prophylactic Antibiotics: The patient does not require prophylactic antibiotics. Prior Anticoagulants: The patient has taken no previous anticoagulant or antiplatelet agents. After reviewing the risks and benefits, the patient was deemed in satisfactory condition to undergo the procedure. The anesthesia plan was to use monitored anesthesia care (MAC). Immediately prior to administration of medications, the patient was re-assessed for adequacy to receive sedatives. The heart rate, respiratory rate, oxygen saturations, blood pressure, adequacy of pulmonary ventilation, and response to care were monitored throughout the procedure. The physical status of the patient was re-assessed after the procedure. After obtaining informed consent, the endoscope was passed under direct vision. Throughout the procedure, the patient's blood pressure, pulse, and oxygen saturations were monitored continuously. The gastroscope was introduced through the mouth, and advanced to the second part of duodenum. The upper GI endoscopy was accomplished without difficulty. The patient tolerated the procedure well. Scope In: 7:15:07 AM Scope Out: 7:18:38 AM Total Procedure Duration Time 0 hours 3 minutes 31 seconds Findings: LA Grade B (one or more mucosal breaks greater than 5 mm, not extending between the tops of two mucosal folds) esophagitis with bleeding was found 35 to 38 cm from the incisors. Biopsies were taken with a cold forceps for histology. Verification of patient identification for the specimen was done. Estimated blood loss was minimal. 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 The gastrojejunal anastomosis was characterized by healthy appearing mucosa. This was traversed. The nlkxb-gs-cdwybxl limb was characterized by healthy appearing mucosa. The jejunojejunal anastomosis was characterized by healthy appearing mucosa. The bkkzwmhc-zc-cjlicpm limb was not examined as it could not be found. The examined jejunum was normal. Impression: - LA Grade B erosive esophagitis. Biopsied. - Bailey-en-Y gastrojejunostomy with gastrojejunal anastomosis characterized by healthy appearing mucosa. - Normal examined jejunum. Recommendation: - Discharge patient to home. - Patient has a contact number available for emergencies. The signs and symptoms of potential delayed complications were discussed with the patient. Return to normal activities tomorrow. Written discharge instructions were provided to the patient. - Resume previous diet. - Continue present medications. - Await pathology results. Procedure Code(s): --- Professional --- 80615, Esophagogastroduodenoscopy, flexible, transoral; with biopsy, single or multiple CPT copyright 2017 [employer]. All rights reserved. The codes documented in this report are preliminary and upon residential interior designer review may be revised to meet current compliance requirements. Lavon Lewis DO 02/19/2023 7:24:07 AM This report has been signed electronically. Number of Addenda: 0 Note Initiated On: 02/19/2023 7:06 AM
--- NOTE | 2023-02-19 07:25 | OP.CCLET_ITS ---
02/19/2023 Theo Ma MD Re : Upper GI endoscopy procedure for Letty Londoon Dear Dr. Ma This procedure was performed on Sunday, February 19, 2023. My impressions and recommendations are as follows: Impressions : - LA Grade B erosive esophagitis. Biopsied. - Bailey-en-Y gastrojejunostomy with gastrojejunal anastomosis characterized by healthy appearing mucosa. - Normal examined jejunum. Recommendations : - Discharge patient to home. - Patient has a contact number available for emergencies. The signs and symptoms of potential delayed complications were discussed with the patient. Return to normal activities tomorrow. Written discharge instructions were provided to the patient. - Resume previous diet. - Continue present medications. - Await pathology results. My findings are described in the full procedure note, which is enclosed. If I can be of further assistance, please feel free to contact me at . Sincerely, Lavon Lewis, 02/19/2023 7:24:07 AM This report has been signed electronically.
[2023-02-19 07:29] VITALS: BP 117/71; BP 141/80; PULSE 69; RESP 18; O2SAT 100
[2023-02-19 07:35] VITALS: BP 113/75; BP 141/80; PULSE 57; RESP 18; O2SAT 97
[2023-02-19 07:40] VITALS: BP 123/76; BP 141/80; PULSE 55; RESP 18; TEMP 36.1; O2SAT 99
[2023-02-19 08:09] VITALS: BP 141/80
== END 2023-02-19 08:21 | disposition home or self-care (01) ==
LOC: EN 06:02 → AC 06:03
PROVIDERS: PCP Family Medicine; Referring Provider Family Medicine; Visit Provider Internal Medicine Gastroenterology
PROC: 0DJ08ZZ Inspection of Upper Intestinal Tract, Via Natural or Artificial Opening Endoscopic (ICD-10-PCS; CPT 43235; principal; 2023-02-19 07:10)
DX: K21.00 Gastro-esophageal reflux disease with esophagitis, without bleeding (principal); Z79.899 Other long term (current) drug therapy; Z87.891 Personal history of nicotine dependence
CPT/HCPCS: 43239; 88305; 88313; 88341; 88342; J7120; J2405

== ENCOUNTER → 2023-08-13 | Outpatient (CLI) | payer MEDICARE, SELFPAY ==
[2023-08-13 15:23] LABS: Thyroid Stim Hormone (TSH) 0.87 uIU/mL (0.358-3.74)
[2023-08-13 15:30] LABS: Hemoglobin A1c 5.8 % (3.8-5.6)
== END | disposition home or self-care (01) ==
LOC: LAB 14:26
PROVIDERS: PCP Family Medicine; Referring Provider Internal Medicine Gastroenterology; Visit Provider Internal Medicine Gastroenterology
DX: E16.2 Hypoglycemia, unspecified (principal); I10 Essential (primary) hypertension
CPT/HCPCS: 36415; 83036; 84443

== ENCOUNTER 2023-11-10 13:05 | Emergency (ER) | payer MEDICARE, SELFPAY ==
[2023-11-10 13:07] VITALS: BP 140/97; PULSE 95; RESP 14; TEMP 36.8; O2SAT 100; BMI 24.2
--- NOTE | 2023-11-10 13:14 | EKG12_ITS ---
Test Reason : CP Blood Pressure : / mmHG Vent. Rate : 085 BPM Atrial Rate : 085 BPM P-R Int : 130 ms QRS Dur : 078 ms QT Int : 348 ms P-R-T Axes : 029 007 023 degrees QTc Int : 414 ms Sinus rhythm with occasional Premature ventricular complexes Nonspecific ST abnormality Abnormal ECG Confirmed by KATIE BIRD, JESSE ([id number]), department editor ADE BARRON ([id number]) on 11/12/2023 10:08:33 AM Referred By: PIPO/MISTY Confirmed By:YANA WILSON MD
--- OUTSIDE RECORDS SUMMARY | 2023-11-10 13:29 | XMS RPT_ITS | CCD ---
Author Name Unknown Address [address] [place] [address] Organization [facility] Care Team Providers Care Photographic Double Name Role Phone Nishant Stephenson Unavailable Jf Sharma MD Primary Care Provider Jf Crawford MD Primary Care Provider Jf Crawford MD Primary Care Provider JF CRAWFORD Referring Unavailab JF Murray Primary Care Unavailab JF Murray Referring Unavailab JF Murray Primary Care Unavailab JF Murray Attending Unavailab JF Murray Primary Care Unavailab JF Murray Primary Care Unavailab le PODLOGSACHIN LUNSFORD Referring Unavailable JF CRAWFORD Primary Care Unavailab JF Murray Primary Care Unavailab harjinder PODLOGSACHIN LUNSFORD Attending JF Sharma Primary Care Unavailab JF Murray Referring Unavailab le Allergies Allergy Classification Reported Allergen(s) Allergy Type Date of Onset Reaction(s) Facility (15 sources) Sertraline; Translations: [SERTRALINE HCL] Drug Allergy 5 Other: See Comments [facility] (15 sources) Sulfamethoxazole / Trimethoprim; Translations: [SULFAMETHOXAZOLE-TR IMETHOPRIM] Drug Allergy 5 Other: See Comments [facility] Medications Current Medications Medication Drug Class(es) Dates Sig (Normalized) Sig (Original) cyclobenzaprine hydrochloride 10 mg oral tablet (2 sources) Muscle Relaxant Start: 07-24-2023 End: 07-31-2023 take 1 tablet by mouth every eight hours as needed for pain and pain cyclobenzaprine (FLEXERIL) 10 mg tablet Indications: Pain Take 1 tablet by mouth three times a day as needed for muscle spasm for up to 7 days. 21 tablet 0 07/24/2023 07/31/2023 Active Completed/Discontinued Medications Medication Drug Class(es) Dates Sig (Normalized) Sig (Original) [id number] 200 actuat albuterol 0.09 mg/actuat metered dose inhaler (15 sources) beta2-Adrenergic Agonist Start: 07-01-2021 End: 11-20-2022 take 2 puff(s) by inhalation every four hours as needed for wheezing albuterol HFA (VENTOLIN HFA) 90 mcg/actuation inhaler Indications: Mild intermittent asthma without complication Inhale 2 Puffs as instructed every 4 hours as needed for wheezing/shortness of breath. 1 Each 2 11/20/2022 Active Problems Active Problems Problem Classification Problem Date Documented Date Episodic/Chronic Asthma (15 sources) Asthma; Translations: [Unspecified asthma, uncomplicated] Onset: 09-16-2007 11-24-2016 Chronic Disorders of lipid metabolism (20 sources) Hyperlipidemia; Translations: [Hyperlipidemia, unspecified] Onset: 10-03-2005 10-03-2005 Chronic Esophageal disorders (20 sources) Gastroesophageal reflux disease without esophagitis; Translations: [Gastro-esophageal reflux disease without esophagitis] Onset: 09-30-2015 09-30-2015 Chronic Mood disorders (15 sources) Recurrent major depression in full remission; Translations: [Major depressive disorder, recurrent, in full remission] Onset: 04-05-2012 04-05-2012 Chronic Nonmalignant breast conditions (14 sources) Fibrocystic disease of breast; Translations: [Diffuse cystic mastopathy of unspecified breast] Onset: 10-03-2005 10-03-2005 Chronic Other lower respiratory disease (14 sources) Post-inflammatory pulmonary fibrosis; Translations: [Pulmonary fibrosis, unspecified] Onset: 12-10-2008 12-10-2008 Chronic Other lower respiratory disease (15 sources) Fibrosis of lung; Translations: [Pulmonary fibrosis, unspecified] Onset: 09-30-2015 09-30-2015 Chronic Residual codes; unclassified (1 source) Pain; Translations: [Pain, unspecified] 07-24-2023 Episodic Spondylosis; intervertebral disc disorders; other back problems (14 sources) Degeneration of lumbar intervertebral disc; Translations: [Other intervertebral disc degeneration, lumbar region] Onset: 12-05-2016 12-05-2016 Chronic Systemic lupus erythematosus and connective tissue disorders (20 sources) Systemic sclerosis; Translations: [Systemic sclerosis, unspecified] Onset: 07-30-2007 07-30-2007 Chronic Unclassified (1 source) Unknown / UNK(Unknown) Onset: 11-01-2017 Past or Other Problems Problem Classification Problem Date Documented Date Episodic/Chronic Administrative/social admission (2 sources) Family conflict; Translations: [Other specified problems related to primary support group] Onset: 3 05-23-2023 Episodic Other bone disease and musculoskeletal deformities (5 sources) Osteopenia; Translations: [Other specified disorders of bone density and structure, unspecified site] Onset: 3 12-04-2022 Episodic Other diseases of kidney and ureters (14 sources) Cyst of kidney; Translations: [Cyst of kidney, acquired] Onset: 6 09-06-2021 Episodic Other gastrointestinal disorders (14 sources) Dysphagia; Translations: [Dysphagia, pharyngoesophageal phase] Onset: 6 09-30-2015 Episodic Other gastrointestinal disorders (11 sources) H/O: GIT by-pass; Translations: [Bariatric surgery status] Onset: 6 09-30-2015 Episodic Other screening for suspected conditions (not mental disorders or infectious disease) (8 sources) Patient encounter status; Translations: [Encounter for screening mammogram for malignant neoplasm of breast] Onset: 3 Episodic Residual codes; unclassified (20 sources) Family history of cancer of colon; Translations: [Family history of malignant neoplasm of digestive organs] Onset: 4 12-23-2013 Episodic Unclassified (1 source) R13.10 Onset: 8 Results Test Name Value Interpretation Reference Range Facil ity Vital Signs Date Time Vital Sign Value Performing Clinician Misael burdick 07-24-2023 09:55-0500 Body temperature 97.2 [degF] Mago Lennon APRN.CNP Work Phone: [facility] 07-24-2023 09:55-0500 Body weight 54.43 kg Mago Lennon APRN.CNP Work Phone: [facility] 07-24-2023 09:55-0500 Diastolic blood pressure 82 mm[Hg] Mago Lennon CREAM DIPPER.PAINT TRIMMER P[employer] Work Phone: [facility] 07-24-2023 09:55-0500 Heart rate 75 /min Mago Lennon CREAM DIPPER.PA[employer] TRIMMER [employer] Work Phone: [facility] 07-24-2023 09:55-0500 Respiratory rate 18 /min Mago Lennon CREAM DIPPER.PAINT TRIMMER [employer]OW[employer] Work Phone: [facility] 07-24-2023 09:55-0500 SaO2% (BldA) [Mass fraction] 96 % Mago Lennon CREAM DIPPER.PAINT TRIMMER [employer]OW[employer] Work Phone: [facility] 07-24-2023 09:55-0500 Systolic blood pressure 144 mm[Hg] Mago Lennon CREAM DIPPER.PAINT TRIMMER [employer]OW[employer] Work Phone: [facility] 05-23-2023 14:02-0400 Body weight 53.71 kg Sachin Podlogar CREAM DIPPER.PAINT TRIMMER [employer]OWLS Work Phone: [facility] 05-23-2023 14:02-0400 Diastolic blood pressure 86 mm[Hg] Sachin Podlogar CREAM DIPPER.PAINT TRIMMER [employer]OW[employer] Work Phone: [facility] 05-23-2023 14:02-0400 Heart rate 73 /min Sachin Podlogar CREAM DIPPER.PAINT TRIMMER [employer] Work Phone: [facility] 05-23-2023 14:02-0400 Respiratory rate 18 /min Sachin Podlogar CREAM DIPPER.PAINT TRIMMER [employer]OWLS Work Phone: [facility] 05-23-2023 14:02-0400 SaO2% (BldA) [Mass fraction] 95 % Sachin Podlogar CREAM DIPPER.PAINT TRIMMER [employer]OW[employer] Work Phone: [facility] 05-23-2023 14:02-0400 Systolic blood pressure 132 mm[Hg] Sachin Podlogar CREAM DIPPER.PAINT TRIMMER [employer]OW[employer] Work Phone: [facility] 11-20-2022 13:56-0400 Body weight 54.52 kg Jf Crawford MD Work Phone: [facility] 11-20-2022 13:56-0400 Diastolic blood pressure 70 mm[Hg] Jf Crawford MD Work Phone: [facility] 11-20-2022 13:56-0400 Heart rate 83 /min Jf Crawford MD Work Phone: [facility] 11-20-2022 13:56-0400 Respiratory rate 16 /min Jf Crawford MD Work Phone: [facility] 11-20-2022 13:56-0400 SaO2% (BldA) [Mass fraction] 97 % Jf Crawford MD Work Phone: [facility] 11-20-2022 13:56-0400 Systolic blood pressure 104 mm[Hg] Jf Crawford MD Work Phone: [facility] Encounters Encounter Date Encounter Type Care Provider Facility Start: 08-22-2023 End: 08-23-2023 ambulatory JF CRAWFORD Facility:[facility] Start: 07-24-2023 End: 07-24-2023 ambulatory JF CRAWFORD Facility:[facility] Start: 07-24-2023 End: 07-24-2023 Patient encounter procedure Mago Lennon APRN.CNP Work Phone: [facility] Procedures Date Procedure Procedure Detail Performing Clinician Start: 12-19-2022 End: 12-19-2022 Mammography Jf starr MD Work Phone: Start: 11-27-2022 Dxa bone density study 1/> sites axial skel Jf Crawford MD Work Phone: Start: 11-20-2022 INFLUENZA VACCINE, PRSV FREE, AGE 65+ YR, HIGH DOSE, QUADRIVALENT (FLUZONE HIGH-DOSE) Jf Crawford MD Work Phone: Start: 11-20-2022 PFIZER-BIONTSamesurf COVID-19 BIVALENT BOOSTER VACCINE, AGE 12+ YR Jf Crawford MD Work Phone: Start: 11-20-2022 Lipid 1996 panel - Serum or Plasma Sachin Huntley APRN.PAINT TRIMMER PIPE BOWLS Work Phone: Start: 12-14-2021 End: 12-14-2021 Screening mammography bi 2-view breast inc cad Jf Crawford MD Work Phone: Start: 12-06-2020 Colonoscopy Screen [facility] Start: 09-30-2015 History of gastrointestinal tract bypass History of Bailey-en-Y gastric bypass Screen [facility] Plan of Treatment Date Care Activity Detail Author Start: 05-24-2028 Urine microalbumin profile [facility] Start: 11-21-2027 Lipid 1996 panel - Serum or Plasma Lipid Screening [facility] Start: 11-21-2027 LIPID SCREEN LIPID SCREEN [facility] Start: 07-01-2026 LIPID SCREEN LIPID SCREEN [facility] Start: 12-06-2025 Colonoscopy COLONOSCOPY [facility] Start: 12-06-2025 COLORECTAL CANCER SCREENING COLORECTAL CANCER SCREENING [facility] Start: 07-01-2024 DIABETES SCREEN DIABETES SCREEN [facility] Start: 07-01-2024 Diabetes Screening Diabetes Screening [facility] Start: 05-23-2024 Annual PCP Team Chronic Disease Visit Annual PCP Team Chronic Disease Visit [facility] Start: 12-20-2023 Mammography [facility] Start: 11-21-2023 ANNUAL PCP TEAM CHRONIC DISEASE VISIT ANNUAL PCP TEAM CHRONIC DISEASE VISIT [facility] Start: 08-22-2023 End: 10-22-2023 Comprehensive metabolic 2000 panel - Serum or Plasma COMP METABOLIC PANEL Lab Routine Pure hypercholesterolemia Expected: 08/22/2023, Expires: 10/22/2023 [facility] Work Phone: Immunizations Immunization Date Immunization Notes Care Provider Fa cili 11-20-2022 COVID-19 booster vaccine, age 12+ yr, bivalent (PFIZER-BIONTECH) Jf Crawford MD Work Phone: [facility] 11-20-2022 influenza (HD-IIV4) vaccine, age 65+ yr, high dose, quadrivalent, PF (FLUZONE HIGH-DOSE) Jf Crawford MD Work Phone: [facility] 11-20-2022 influenza virus vacc ine, unspecified formulation Sachin Huntley CREAM DIPPER.PAINT TRIMMER P[employer]OWLS Work Phone: [facility] 07-01-2021 influenza, high-dose , quadrivalent vaccine (FLUZONE HIGH DOSE QUADRIVALENT) Screen [facility] 07-01-2021 pneumococcal polysaccharide vaccine, 23 valent Screen [facility] 02-14-2021 COVID-19 vaccine, fu ll dose (MODERNA) Screen [facility] 01-17-2021 COVID-19 vaccine, fu ll dose (MODERNA) Screen [facility] 07-02-2020 influenza, high-dose , quadrivalent vaccine (FLUZONE HIGH DOSE QUADRIVALENT) Screen [facility] 11-08-2018 influenza, injectabl e, quadrivalent, contains preservative Screen [facility] 05-24-2018 tetanus toxoid, redu rekha diphtheria toxoid, and acellular pertussis vaccine, adsorbed Screen [facility] 06-15-2017 pneumococcal conjuga te vaccine, 13 valent Screen [facility] 06-15-2017 zoster vaccine, live Screen [facility] 07-08-2015 influenza, injectabl e, quadrivalent, contains preservative Screen [facility] 06-17-2014 influenza, seasonal, injectable, preservative free Screen [facility] 01-11-2013 pneumococcal polysaccharide vaccine, 23 valent Screen [facility] Payers Date Payer Category Payer Medicare [employer] MEDICARE [employer] MEDICARE PPO [id number] 2020-Present [phone] [address] [address] [place] [address] PPO [id number] 2020 Medicare [employer] MEDICARE [employer] MEDICARE PPO [id number] 2020-Present [phone] [address] [address] [place] [address] PPO [id number] 2020 Medicare [id number] Unknown [id number] Social History Date Type Detail Facility Start: 04-24-2012 End: 11-20-2022 Tobacco smoking status NHIS Ex-smoker [facility] End: 03-29-2012 History of tobacco use Current smoker [facility] End: 03-29-2012 History of tobacco use Cigarette Smoker [facility] Start: 12-01-2021 End: 07-24-2023 Alcohol intake Current drinker of alcohol (finding) [facility] Start: 04-24-2012 End: 11-20-2022 Tobacco Comment since 1989 smokes an occasional cigarette, last was 03/29/12 [facility] Start: 1955 Sex Assigned At Not on file C [facility] Start: 10-17-2021 End: 05-12-2022 Exposure to SARS-CoV-2 (event) Not sure [facility] Start: 04-24-2012 End: 05-23-2023 Cigarettes smoked current (pack per day) - Reported 0.5 [facility] Start: 04-24-2012 End: 11-20-2022 Tobacco use and exposure Smokeless tobacco non-user [facility] Work Phone: Start: 12-04-2022 End: 05-23-2023 Tobacco use panel [facility] Adult Depression Screening Assessment 0 [facility] Clinical Notes 02-19-2013 to 10-03-2023 Mago Lennon APRN.PA[employer] TRIMMER [employer]OW[employer] - 07/24/2023 10:07 AM ESTPatient InstructionsPoSachin fish APRN.PAINT TRIMMER P[employer] BOWLS - 05/23/2023 1:56 PM EDTLetter - Mammography Coordinator - 12/20/2022 12:28 PM EDTPatient Instructions Note Date & Type Note Facility 10-03-2023 Note HNO ID: [id number] Author: ?, ?, ? Service: ? Author Type: ? Type: Progress Notes Filed: 10/03/2023 16:26 Note Text: POPULATION HEALTH NAVIGATION OUTREACH Action/FYI Patient left VM, I attempted to call back and left 2nd vm Patient Identified by Name and : NO Outreach Outcome/Action Unable to reach patient: Left message Navigation Signature: Parth Anthony October 03, 2023 4:26 PM [facility] 09-26-2023 Note Patient Outreach (CASI TNMEHUL) LUIS LONDONO ([id number]) 1955 F Date Time Provider Department 09/26/23 PARTH ANTHONY NETHYACINTH During your visit today, we recorded the following information about you: Parth Anthony 09/26/2023 10:01 AM Signed POPULATION HEALTH NAVIGATION OUTREACH Action/FYI [facility] Patient due for the following: Mammogram - due 12/20/23 Influenza Advance Directive discussion Patient Identified by Name and : NO Outreach Outcome/Action Unable to reach patient: Left message [employer] message sent Did you use a PCP flex slot to schedule this appointment? N/A Reason for Outreach Care Gap or Scheduling/Wellness visits Payer: Payor: [employer] MEDICARE / Plan: [employer] MEDICARE PPO / Product Type: PPO / Care Gap Reviewed:: Breast Cancer screening Flu Vaccine Reminder: Reminder note to check Health Maintenance for items below Health Maintenance items due: Spirometry Never done RSV Vaccine(1 - 1-dose 60+ series) Never done Shingrix Vaccine(2 of 3) due on 08/10/2017 Influenza Vaccine(1) due on 05/11/2023 Covid-19 Vaccine( season) due on 05/11/2023 Advance Directive Discussion Never done Mammogram Screening due on 12/20/2023 Navigation Signature: Parth Anthony September 26, 2023 9:57 AM Parth Anthony 10/03/2023 4:26 PM Signed POPULATION HEALTH NAVIGATION OUTREACH Action/FYI Patient left VM, I attempted to call back and left 2nd vm Patient Identified by Name and : NO Outreach Outcome/Action Unable to reach patient: Left message Navigation Signature: Parth Anthony October 03, 2023 4:26 PM Allergies As of Date: 09/26/2023 Noted Allergy Reaction BACTRIM (SULFAMETHOXAZOLE-TRIMETH*05/26/20 05 14 - Other: See Comments Comments: severe headache ZOLOFT (SERTRALINE HCL) 05/26/2005 14 - Other: See Comments Comments: headache Date Reviewed: 07/24/2023 Reviewed by: Buffy Bob - Fully Assessed Reason for Visit: Population Health Navigation Outreach [[id number]] Cmt: [employer] Medicare Prescriptions as of 10/03/2023 - atorvastatin (LIPITOR) 20 mg tablet Take 1 tablet by mouth daily at bedtime. For cholesterol. - albuterol HFA (VENTOLIN HFA) 90 mcg/actuation inhaler Inhale 2 Puffs as instructed every 4 hours as needed for wheezing/shortness of breath. - NIFEdipine ER (PROCARDIA XL) 30 mg 24 hr tablet Take 1 tablet by mouth once daily. - esomeprazole (NEXIUM) 40 mg capsule Take 1 capsule by mouth once daily. - multivitamin with minerals (HAIR,SKIN AND NAILS ORAL) Take 2,500 mcg by mouth. - Ascorbic Acid 250 mg chew Take 500 mg by mouth once daily. - CALCIUM CARBONATE/VITAMIN D3 (CALCIUM WITH VITAMIN D ORAL) Take 2 tablets by mouth once daily. - cyanocobalamin (VITAMIN B-12) 500 mcg tablet Take 1,000 mcg by mouth once daily. - ferrous gluconate 236 mg (27 mg iron) Tab Take 1 tablet by mouth once daily. - multivitamin tablet Take 1 tablet by mouth once daily. Meds Comments as of 09/30/2015: Pt. States all meds are current. MA Pt. States all meds are current. ks ma Patient states no change in medications 09/30/15. MJ Problem List As Of Date 09/26/2023 Noted Resolved HYPERLIPIDEMIA NEC/NOS [E78.5] 10/03/2005 DIFFUS CYSTIC MASTOPATHY [N60.19] 10/03/2005 Plantar fascial fibromatosis [M72.2] 05/10/2006 11/24/2016 SYSTEMIC SCLEROSIS [M34.9] 07/30/2007 Asthma [J45.909] 09/16/2007 POSTINFLAM PULM FIBROSIS [J84.10] 12/10/2008 Examination of Participant in Clinical Trial [Z*11/23/2009 Esophageal reflux [K21.9] 11/11/2010 09/24/2013 Esophagitis, unspecified [K20.90] 11/11/2010 09/24/2013 Scleroderma [M34.9] 01/10/2012 Nicotine abuse [Z72.0] 04/05/2012 09/24/2013 Major depressive disorder, recurrent episode, i*04/05/2012 Morbid obesity [E66.01] 02/19/2013 09/24/2013 Family hx of colon cancer [Z80.0] 12/23/2013 Gastroesophageal reflux disease without esophag*09/30/2015 Pharyngoesophageal dysphagia [R13.14] 09/30/2015 Allen's esophagus without dysplasia [K22.70] 09/30/2015 Family history of colon cancer [Z80.0] 09/30/2015 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 Service: ? Author Type: ? Type: Progress Notes Filed: 09/26/2023 10:01 Note Text: POPULATION HEALTH NAVIGATION OUTREACH Action/ Chin villarreal Patient due for the following: Mammogram - due 12/20/23 Influenza Advance Directive discussion Patient Identified by Name and : NO Outreach Outcome/Action Unable to reach patient: Left message [employer] message sent Did you use a PCP flex slot to schedule this appointment? N/A Reason for Outreach Care Gap or Scheduling/Wellness visits Payer: Payor: [employer] MEDICARE / Plan: [facility] [employer] MEDICARE PPO / Product Type: PPO / Care Gap Reviewed:: Breast Cancer screening Flu Vaccine Reminder: Reminder note to check Health Maintenance for items below Health Maintenance items due: Spirometry Never done RSV Vaccine(1 - 1-dose 60+ series) Never done Shingrix Vaccine(2 of 3) due on 08/10/2017 Influenza Vaccine(1) due on 05/11/2023 Covid-19 Vaccine( season) due on 05/11/2023 Advance Directive Discussion Never done Mammogram Screening due on 12/20/2023 Navigation Signature: Parth Anthony September 26, 2023 9:57 AM [facility] 07-24-2023 Note HNO ID: [id number] Author: Mago Lennon APRN.PAINT TRIMMER [employer]OW[employer] Service: ? Author Type: Nurse Practitioner Type: Progress Notes Filed: 07/24/2023 10:12 AM Note Text: Subjective She came in with complaints of left-sided neck pain. Patient says she woke up with it. Patient says she is tried IcyHot and warm shower with no relief. Patient says it hurts to move her head. Denies any shortness of breath chest pain left arm discomfort left jaw discomfort. The history is provided by the patient. No refinery operator vapor recovery unit was used. Neck Pain Review of Systems Constitutional: Negative. Musculoskeletal: Positive for neck pain. Skin: Negative. Objective Physical Exam Constitutional: Appearance: Normal appearance. Neck: Comments: It is tender in the area above when palpated. Patient's range of motion is limited due to discomfort. Pulmonary: Effort: Pulmonary effort is normal. Neurological: Mental Status: She is alert. 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 PAST SURGICAL HISTORY Procedure Laterality Date APPENDECTOMY COLONOSCOPY 03/16/2014 Mild diverticulosis COLONOSCOPY FLX DX W/COLLJ SPEC WHEN PFRMD 07/2004 Colonoscopy COLONOSCOPY FLX DX W/COLLJ SPEC WHEN PFRMD 04/19/2009 COLONOSCOPY GEN ANES 12/06/2020 Repeat in 5 years CORRECT BUNION,SIMPLE Bunion EGD 12/06/2020 EGD TRANSORAL BIOPSY SINGLE/MULTIPLE 11/11/2010 ESOPHAGOGASTRODUODENOSCOPY TRANSORAL DIAGNOSTIC 11/18/2018 EGD EYE SURGERY HX LAPS ABD PRTMANDOMENTUM DX W/WO SPEC BR/WA SPX Laparoscopy LAPS ABD PRTMANDOMENTUM DX W/WO SPEC BR/WA SPX Laparoscopy MIDLINE INSERTION/CONSULT 01/09/2013 PAST SURGICAL HISTORY OF 01/2013 Gstric restrictive surgery with bypass and Bailey-En-Y PAST SURGICAL HISTORY OF 03/2018 middle finger right hand/end of finger stitched back together after a severe cut ALLERGIES Bactrim [Sulfamethoxazole-Trimethoprim] and Zoloft [Sertraline Hcl] MEDICATIONS atorvastatin (LIPITOR) 20 mg tablet Take 1 tablet by mouth daily at bedtime. For cholesterol. albuterol HFA (VENTOLIN HFA) 90 mcg/actuation inhaler Inhale 2 Puffs as instructed every 4 hours as needed for wheezing/shortness of breath. esomeprazole (NEXIUM) 40 mg capsule Take 1 capsule by mouth once daily. multivitamin with minerals (HAIR,SKIN AND NAILS ORAL) Take 2,500 mcg by mouth. Ascorbic Acid 250 mg chew Take 500 mg by mouth once daily. CALCIUM CARBONATE/VITAMIN D3 (CALCIUM WITH VITAMIN D ORAL) Take 2 tablets by mouth once daily. cyanocobalamin (VITAMIN B-12) 500 mcg tablet Take 1,000 mcg by mouth once daily. ferrous gluconate 236 mg (27 mg iron) Tab Take 1 tablet by mouth once daily. multivitamin tablet Take 1 tablet by mouth once daily. cyclobenzaprine (FLEXERIL) 10 mg tablet Take 1 tablet by mouth three times a day as needed for muscle spasm for up to 7 days. NIFEdipine ER (PROCARDIA XL) 30 mg 24 hr tablet Take 1 tablet by mouth once daily. FAMILY HISTORY Problem Relation Age of Onset Cancer Mother lung (smoker), colon, cva Colon Cancer Mother Stroke Mother Alzheimer's Disease Father after hip fx, pneumonia Social History Tobacco Use Smoking status: Former Packs/day: 0.50 Years: 12.00 Additional pack years: 0.00 Total pack years: 6.00 Types: Cigarettes Quit date: 03/29/2012 Years since quittin.3 Smokeless tobacco: Never Tobacco comments: since 1989 smokes an occasional cigarette, last was 03/29/12 Vaping Use Vaping Use: Never used Substance Use Topics Alcohol use: Yes Comment: rarely Drug use: No ASSESSMENT/PLAN: 1. Pain - ICD9: 780.96, ICD10: R52 - CYCLOBENZAPRINE 10 MG TABLET - CYCLOBENZAPRINE 10 MG TABLET Was educated about proper use of medication and supportive therapies. Patient was educated Flexeril will make her drowsy not to drive operate heavy machinery or drink alcohol. Patient was okay with this care plan and will follow-up as needed. Mago Lennon APRN.[facility] 07-24-2023 History of Present illness Narrative Images from the original note were not included. Subjective She came in with complaints of left-sided neck pain. Patient says she woke up with it. Patient says she is tried IcyHot and warm shower with no relief. Patient says it hurts to move her head. Denies any shortness of breath chest pain left arm discomfort left jaw discomfort. The history is provided by the patient. No refinery operator vapor recovery unit was used. Neck Pain Review of Systems Constitutional: Negative. Musculoskeletal: Positive for neck pain. Skin: Negative. Objective Physical Exam Constitutional: Appearance: Normal appearance. Neck: Comments: It is tender in the area above when palpated. Patient's range of motion is limited due to discomfort. Pulmonary: Effort: Pulmonary effort is normal. Neurological: Mental Status: She is alert. 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 PAST SURGICAL HISTORY Procedure Laterality Date APPENDECTOMY COLONOSCOPY 03/16/2014 Mild diverticulosis COLONOSCOPY FLX DX W/COLLJ SPEC WHEN PFRMD 07/2004 Colonoscopy COLONOSCOPY FLX DX W/COLLJ SPEC WHEN PFRMD 04/19/2009 COLONOSCOPY GEN ANES 12/06/2020 Repeat in 5 years CORRECT BUNION,SIMPLE Bunion EGD 12/06/2020 EGD TRANSORAL BIOPSY SINGLE/MULTIPLE 11/11/2010 ESOPHAGOGASTRODUODENOSCOPY TRANSORAL DIAGNOSTIC 11/18/2018 EGD EYE SURGERY HX LAPS ABD PRTM&OMENTUM DX W/WO SPEC BR/WA SPX Laparoscopy LAPS ABD PRTM&OMENTUM DX W/WO SPEC BR/WA SPX Laparoscopy MIDLINE INSERTION/CONSULT 01/09/2013 PAST SURGICAL HISTORY OF 01/2013 Gstric restrictive surgery with bypass and Bailey-En-Y PAST SURGICAL HISTORY OF 03/2018 middle finger right hand/end of finger stitched back together after a severe cut ALLERGIES Bactrim [Sulfamethoxazole-Trimethoprim] and Zoloft [Sertraline Hcl] MEDICATIONS atorvastatin (LIPITOR) 20 mg tablet Take 1 tablet by mouth daily at bedtime. For cholesterol. albuterol HFA (VENTOLIN HFA) 90 mcg/actuation inhaler Inhale 2 Puffs as instructed every 4 hours as needed for wheezing/shortness of breath. esomeprazole (NEXIUM) 40 mg capsule Take 1 capsule by mouth once daily. multivitamin with minerals (HAIR,SKIN AND NAILS ORAL) Take 2,500 mcg by mouth. Ascorbic Acid 250 mg chew Take 500 mg by mouth once daily. CALCIUM CARBONATE/VITAMIN D3 (CALCIUM WITH VITAMIN D ORAL) Take 2 tablets by mouth once daily. cyanocobalamin (VITAMIN B-12) 500 mcg tablet Take 1,000 mcg by mouth once daily. ferrous gluconate 236 mg (27 mg iron) Tab Take 1 tablet by mouth once daily. multivitamin tablet Take 1 tablet by mouth once daily. cyclobenzaprine (FLEXERIL) 10 mg tablet Take 1 tablet by mouth three times a day as needed for muscle spasm for up to 7 days. NIFEdipine ER (PROCARDIA XL) 30 mg 24 hr tablet Take 1 tablet by mouth once daily. FAMILY HISTORY Problem Relation Age of Onset Cancer Mother lung (smoker), colon, cva Colon Cancer Mother Stroke Mother Alzheimer's Disease Father after hip fx, pneumonia Social History Tobacco Use Smoking status: Former Packs/day: 0.50 Years: 12.00 Additional pack years: 0.00 Total pack years: 6.00 Types: Cigarettes Quit date: 03/29/2012 Years since quittin.3 Smokeless tobacco: Never Tobacco comments: since 1989 smokes an occasional cigarette, last was 03/29/12 Vaping Use Vaping Use: Never used Substance Use Topics Alcohol use: Yes Comment: rarely Drug use: No ASSESSMENT/PLAN: 1. Pain - ICD9: 780.96, ICD10: R52 - CYCLOBENZAPRINE 10 MG TABLET - CYCLOBENZAPRINE 10 MG TABLET Was educated about proper use of medication and supportive therapies. Patient was educated Flexeril will make her drowsy not to drive operate heavy machinery or drink alcohol. Patient was okay with this care plan and will follow-up as needed. Mago Lennon APRN.ARIAN documented in this encounter [facility] 05-23-2023 Note HNO ID: [id number] Author: Sachin Huntley APRN.CNP Service: ? Author Type: Nurse Practitioner Type: Progress Notes Filed: 05/23/2023 7:21 PM Note Text: 05/23/2023 Patient presents with: F/U 6 Month SUBJECTIVE: This is a 67 year old that is here today for Above Complaints. Allen's esophagus: following with Dr. Lewis, gastroenterology. Recent EGD. Was started on amitriptyline but she only took for 6 days and doesn't think it was helping. Continue to take her procardia and Nexium as prescribed. Has follow-up scheduled in August HYPERLIPIDEMIA: did not stat atorvastatin, reports she never got the message about this. When trying to screen for depression patient reported she didn't want to discuss this. She did express her family doesn't seem to care much about how she is feeling. Reports she does quite a bit for her children but they don't do much to help her out. 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 For cholesterol. albuterol HFA (VENTOLIN HFA) 90 mcg/actuation inhaler Inhale 2 Puffs as instructed every 4 hours as needed for wheezing/shortness of breath. NIFEdipine ER (PROCARDIA XL) 30 mg 24 hr tablet Take 1 tablet by mouth once daily. esomeprazole (NEXIUM) 40 mg capsule Take 1 capsule by mouth once daily. multivitamin with minerals (HAIR,SKIN AND NAILS ORAL) Take 2,500 mcg by mouth. Ascorbic Acid 250 mg chew Take 500 mg by mouth once daily. CALCIUM CARBONATE/VITAMIN D3 (CALCIUM WITH VITAMIN D ORAL) Take 2 tablets by mouth once daily. cyanocobalamin (VITAMIN B-12) 500 mcg tablet Take 1,000 mcg by mouth once daily. ferrous gluconate 236 mg (27 mg iron) Tab Take 1 tablet by mouth once daily. multivitamin tablet Take 1 tablet by mouth once daily. No current facility-administered medications for this visit. Medications and allergies reviewed by this provider. SOCIAL HISTORY Social History Tobacco Use Smoking status: Former Packs/day: 0.50 Years: 12.00 Additional pack years: 0.00 Total pack years: 6.00 Types: Cigarettes Quit date: 03/29/2012 Years since quittin.1 Smokeless tobacco: Never Tobacco comments: since 1989 smokes an occasional cigarette, last was 03/29/12 Vaping Use Vaping Use: Never used Substance Use Topics Alcohol use: Yes Comment: rarely Drug use: No REVIEW OF SYSTEMS All other reviewed and negative other than HPI. OBJECTIVE: BP 132/86 Pulse 73 Resp 18 Wt 53.7 kg (118 lb 6.4 oz) SpO2 95% BMI 23.55 kg/m? . Vital signs reviewed by this provider. APPEARANCE Well appearing, alert, in no acute distress, well-hydrated, well nourished. EYES conjunctiva and sclera normal. HEART RRR with normal S1 and S2, no murmurs, no gallops, no JVD appreciated LUNG clear to auscultation. No wheezes, rhonchi or rales EXTREMITIES Extremities normal, No deformities, No skin discoloration, No edema, and Normal pulses bilaterally. SKIN Skin color, texture, turgor normal, no suspicious rashes or lesions Component Latest Ref Rng AND Units 11/20/2022 Total Cholesterol, Nonfasting <200 mg/dL 301 (H) Triglycerides, Nonfasting <150 mg/dL 76 HDL Cholesterol, Nonfasting >39 mg/dL 100 LDL Cholesterol, Nonfasting <100 mg/dL 186 (H) Non HDL Cholesterol, Nonfasting <130 mg/dL 201 (H) VLDL Cholesterol, Nonfasting <30 mg/dL 15 Total Chol/HDL Ratio, Nonfasting <5.10 mg/dL 3.01 LDL/HDL Ratio, Nonfasting <2.54 mg/dL 1.86 Spirometry Never done Shingrix Vaccine(2 of 3) due on 08/10/2017 Advance Directive Discussion Never done Covid-19 Vaccine(5 - Moderna series) due on 03/22/2023 Influenza Vaccine(1) due on 05/11/2023 Mammogram Screening due on 12/20/2023 Annual PCP Team Chronic Disease Visit due on 05/23/2024 Diabetes Screening due on 07/01/2024 Colorectal Cancer Screening due on 12/06/2025 Lipid Screening due on 11/21/2027 DTaP,Tdap,Td Vaccine(2 - Td or Tdap) due on 05/24/2028 Bone Density Screening Completed Hepatitis C Screening Completed Pneumococcal Vaccine: 65+ Completed ASSESSMENT/PLAN: 1. Pure hypercholesterolemia - ICD (more content not included)... [facility] 05-23-2023 Instructions Sachin Huntley APRN.CNP - 05/23/2023 2:24 PM EDT Get labs in 3 months documented in this encounter [facility] 05-23-2023 History of Present illness Narrative 05/23/2023 Patient presents with: F/U 6 Month SUBJECTIVE: This is a 67 year old that is here today for Above Complaints. Allen's esophagus: following with Dr. Lewis, gastroenterology. Recent EGD. Was started on amitriptyline but she only took for 6 days and doesn't think it was helping. Continue to take her procardia and Nexium as prescribed. Has follow-up scheduled in August HYPERLIPIDEMIA: did not stat atorvastatin, reports she never got the message about this. When trying to screen for depression patient reported she didn't want to discuss this. She did express her family doesn't seem to care much about how she is feeling. Reports she does quite a bit for her children but they don't do much to help her out. 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 For cholesterol. albuterol HFA (VENTOLIN HFA) 90 mcg/actuation inhaler Inhale 2 Puffs as instructed every 4 hours as needed for wheezing/shortness of breath. NIFEdipine ER (PROCARDIA XL) 30 mg 24 hr tablet Take 1 tablet by mouth once daily. esomeprazole (NEXIUM) 40 mg capsule Take 1 capsule by mouth once daily. multivitamin with minerals (HAIR,SKIN AND NAILS ORAL) Take 2,500 mcg by mouth. Ascorbic Acid 250 mg chew Take 500 mg by mouth once daily. CALCIUM CARBONATE/VITAMIN D3 (CALCIUM WITH VITAMIN D ORAL) Take 2 tablets by mouth once daily. cyanocobalamin (VITAMIN B-12) 500 mcg tablet Take 1,000 mcg by mouth once daily. ferrous gluconate 236 mg (27 mg iron) Tab Take 1 tablet by mouth once daily. multivitamin tablet Take 1 tablet by mouth once daily. No current facility-administered medications for this visit. Medications and allergies reviewed by this provider. SOCIAL HISTORY Social History Tobacco Use Smoking status: Former Packs/day: 0.50 Years: 12.00 Additional pack years: 0.00 Total pack years: 6.00 Types: Cigarettes Quit date: 03/29/2012 Years since quittin.1 Smokeless tobacco: Never Tobacco comments: since 1989 smokes an occasional cigarette, last was 03/29/12 Vaping Use Vaping Use: Never used Substance Use Topics Alcohol use: Yes Comment: rarely Drug use: No REVIEW OF SYSTEMS All other reviewed and negative other than HPI. OBJECTIVE: BP 132/86 Pulse 73 Resp 18 Wt 53.7 kg (118 lb 6.4 oz) SpO2 95% BMI 23.55 kg/m . Vital signs reviewed by this provider. APPEARANCE Well appearing, alert, in no acute distress, well-hydrated, well nourished. EYES conjunctiva and sclera normal. HEART RRR with normal S1 and S2, no murmurs, no gallops, no JVD appreciated LUNG clear to auscultation. No wheezes, rhonchi or rales EXTREMITIES Extremities normal, No deformities, No skin discoloration, No edema, and Normal pulses bilaterally. SKIN Skin color, texture, turgor normal, no suspicious rashes or lesions Component Latest Ref Rng & Units 11/20/2022 Total Cholesterol, Nonfasting <200 mg/dL 301 (H) Triglycerides, Nonfasting <150 mg/dL 76 HDL Cholesterol, Nonfasting >39 mg/dL 100 LDL Cholesterol, Nonfasting <100 mg/dL 186 (H) Non HDL Cholesterol, Nonfasting <130 mg/dL 201 (H) VLDL Cholesterol, Nonfasting <30 mg/dL 15 Total Chol/HDL Ratio, Nonfasting <5.10 mg/dL 3.01 LDL/HDL Ratio, Nonfasting <2.54 mg/dL 1.86 Spirometry Never done Shingrix Vaccine(2 of 3) due on 08/10/2017 Advance Directive Discussion Never done Covid-19 Vaccine(5 - Moderna series) due on 03/22/2023 Influenza Vaccine(1) due on 05/11/2023 Mammogram Screening due on 12/20/2023 Annual PCP Team Chronic Disease Visit due on 05/23/2024 Diabetes Screening due on 07/01/2024 Colorectal Cancer Screening due on 12/06/2025 Lipid Screening due on 11/21/2027 DTaP,Tdap,Td Vaccine(2 - Td or Tdap) due on 05/24/2028 Bone Density Screening Completed Hepatitis C Screening Completed Pneumococcal Vaccine: 65+ Completed ASSESSMENT/PLAN: 1. Pure hypercholesterolemia - ICD9: 272.0, ICD10: E78.00 (primary diagnosis) - patient would like to recheck this- said she didn't fast - LIPID PANEL BASIC - COMP METABOLIC PANEL 2. Allen's esophagus without dysplasia - ICD9: 530.85, ICD10: K22.70 - continue current medications - follow-up with GI as scheduled 3. Family discord - ICD9: V61.9, ICD10: Z63.8 - counseling encouraged - no interest in medication at this time - follow-up as needed Sachin Huntley APRN.CNP Prescription instructions reviewed with patient as applicable. Patient advised if symptoms do not improve or if symptoms worsen sooner, to contact their primary care physician. Potential red flag symptoms discussed with the patient. Reviewed appropriate action plan to take if red flag symptoms occur. Patient agreeable to treatment plan. I spent a total of 25 minutes on the date of the service which included preparing to see the patient, [id number] patient care, completing clinical documentation, obtaining and/or reviewing separately obtained history, performing a medically appropriate examination, counseling and educating the patient/family/caregiver, and ordering medications, tests, or procedures. documented in this encounter [facility] 12-20-2022 Miscellaneous Notes December 21, 2022 PID: [id number] Luis Londono [address] [place] [address] Dear Ms. Londono, We are pleased to inform you that the results of your recent breast imaging exam on 12/19/2022 are normal. Early detection of cancer is very important. We also understand recommendations regarding breast cancer screening are controversial. Please discuss with your primary care provider which strategy is best for you and whether a mammogram is right for you. Your imaging studies and report will be kept on file at [facility] as part of your permanent medical record and are available for your continuing care. Thank you for allowing us to help in meeting your health care needs. Sincerely, Dr. Castro Interpreting Radiologist [facility] (Normal over 40) documented in this encounter [facility] 12-19-2022 Note HNO ID: [id number] Author: RT Thania(R) Service: ? Author Type: Technologist Type: Progress Notes Filed: 12/19/2022 10:44 AM Note Text: Radiology Service Progress Note PATIENT NAME: Luis Londono DATE OF SERVICE: December 19, 2022 TIME: 10:44 AM PATIENT IDENTITY VERIFICATION COMPLETED USING TWO (2) IDENTIFIERS: Name and Date of confirmed by patient verbally. FALL SCREENING: Has the patient had 2 falls in the last year or 1 fall with injury or currently using an Ambulatory Assistive Device (Walker, Cane, Wheelchair, Crutches, etc.)? No PATIENT GENDER DATA: Female. status: : No status: NO. PATIENT RELEVANT IMPLANT DATA REVIEWED: Not Applicable RADIOLOGY DEPARTMENT: Mammography PERIPHERAL IV DATA: Not applicable SIGNED BY: RT Thania(Carlo) December 19, 2022 10:44 AM [facility] 12-19-2022 History of Present illness Narrative Radiology Service Progress Note PATIENT NAME: Luis Londono DATE OF SERVICE: December 19, 2022 TIME: 10:44 AM PATIENT IDENTITY VERIFICATION COMPLETED USING TWO (2) IDENTIFIERS: Name and Date of confirmed by patient verbally. FALL SCREENING: Has the patient had 2 falls in the last year or 1 fall with injury or currently using an Ambulatory Assistive Device (Walker, Cane, Wheelchair, Crutches, etc.)? No PATIENT GENDER DATA: Female. status: : No status: NO. PATIENT RELEVANT IMPLANT DATA REVIEWED: Not Applicable RADIOLOGY DEPARTMENT: Mammography PERIPHERAL IV DATA: Not applicable SIGNED BY: RT Thania(Carlo) December 19, 2022 10:44 AM documented in this encounter [facility] 12-05-2022 Miscellaneous Notes Phoned patient and updated her with PCP's message. She voiced understanding. Rx sent. Call with side effects which typically include: abdominal pain, reflux, nausea, diarrhea, constipation, or muscle pain. Pt was notified of results & voiced understanding. Pt is willing to try fosamax if it is affordable, pt will using [facility]. Pending. Tania Ferrer LPN ----- Message from Jf Crawford MD sent at 12/04/2022 4:51 PM EDT ----- Patient's bone density scan is positive for ostenopenia with high fracture risk. Recommend starting her on Fosamax weekly along with 1,200 units of calcium and vitamin D daily to improve her bone density and reduce her risk for fractures. If agreeable, will send rx to requested pharmacy. documented in this encounter [facility] 11-27-2022 Note HNO ID: [id number] Author: RT Emiliana(R) Service: ? Author Type: Technologist Type: Progress Notes Filed: 11/27/2022 2:15 PM Note Text: Radiology Service Progress Note PATIENT NAME: Luis Londono DATE OF SERVICE: November 27, 2022 TIME: 2:07 PM PATIENT IDENTITY VERIFICATION COMPLETED USING TWO (2) IDENTIFIERS: Name and Date of confirmed by patient verbally. FALL SCREENING: Has the patient had 2 falls in the last year or 1 fall with injury or currently using an Ambulatory Assistive Device (Walker, Cane, Wheelchair, Crutches, etc.)? No PATIENT GENDER DATA: Female. status: : No status: NO. PATIENT RELEVANT IMPLANT DATA REVIEWED: Not Applicable RADIOLOGY DEPARTMENT: Bone Density PERIPHERAL IV DATA: Not applicable SIGNED BY: RT Emiliana(R) November 27, 2022 2:07 PM [facility] 11-27-2022 History of Present illness Narrative Radiology Service Progress Note PATIENT NAME: Luis Londono DATE OF SERVICE: November 27, 2022 TIME: 2:07 PM PATIENT IDENTITY VERIFICATION COMPLETED USING TWO (2) IDENTIFIERS: Name and Date of confirmed by patient verbally. FALL SCREENING: Has the patient had 2 falls in the last year or 1 fall with injury or currently using an Ambulatory Assistive Device (Walker, Cane, Wheelchair, Crutches, etc.)? No PATIENT GENDER DATA: Female. status: : No status: NO. PATIENT RELEVANT IMPLANT DATA REVIEWED: Not Applicable RADIOLOGY DEPARTMENT: Bone Density PERIPHERAL IV DATA: Not applicable SIGNED BY: RT Emiliana(R) November 27, 2022 2:07 PM documented in this encounter [facility] 11-20-2022 Note HNO ID: [id number] Author: Jf Crawford MD Service: ? Author Type: Physician Type: Progress Notes Filed: 11/21/2022 8:34 AM Note Text: Chief Complaint Patient presents with: Follow Up HPI Luis Londono is a 67 year old female who presents here today for routine follow up. Patient has been in good health without hospitalizations or ER visits. No falls in the last 12 months. Patient here today for medication refills and routine check up. States she has been taking her nifedipine for her scleroderma and is doing well without side effects. Has not followed up with rheumatology in more than 5 years now. Allen's esophagus: Patient compliant with PPI. Had EGD in September by Dr. Lewis with finding of Grade B reflux. Started on Misoprostol QID x 12 weeks and would need to repeat EGD in 5 months. Patient states that she has been feeling dizzy in the morning after taking this medication. Lies down and symptoms improve after about 1 hour. Denies significant heartburn, dysphagia, odynophagia. Asthma: Symptoms controlled without daily rx. States she has nebulizer at home, but has not needed it since 2015. Denies cough/SOB/wheezing. Would like rescue inhaler for PRN use. History of depression which is controlled without medication or counseling at this time. PHQ-2 / Depression screen He in the past two weeks denies having felt down, depressed, hopeless or with little interest or pleasure in doing things. Due for COVID vaccine today. 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 Past medical history, appointments, medications, allergies reviewed. 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 Previous Surgical History PAST SURGICAL HISTORY Procedure Laterality Date APPENDECTOMY COLONOSCOPY 03/16/2014 Mild diverticulosis COLONOSCOPY FLX DX W/COLLJ SPEC WHEN PFRMD 07/2004 Colonoscopy COLONOSCOPY FLX DX W/COLLJ SPEC WHEN PFRMD 04/19/2009 COLONOSCOPY GEN ANES 12/06/2020 Repeat in 5 years CORRECT BUNION,SIMPLE Bunion EGD 12/06/2020 EGD TRANSORAL BIOPSY SINGLE/MULTIPLE 11/11/2010 ESOPHAGOGASTRODUODENOSCOPY TRANSORAL DIAGNOSTIC 11/18/2018 EGD EYE SURGERY HX LAPS ABD PRTMANDOMENTUM DX W/WO SPEC BR/WA SPX Laparoscopy LAPS ABD PRTMANDOMENTUM DX W/WO SPEC BR/WA SPX Laparoscopy MIDLINE INSERTION/CONSULT 01/09/2013 PAST SURGICAL HISTORY OF 01/2013 Gstric restrictive surgery with bypass and Bailey-En-Y PAST SURGICAL HISTORY OF 03/2018 middle finger right hand/end of finger stitched back together after a severe cut Family History FAMILY HISTORY Problem Relation Age of Onset Cancer Mother lung (smoker), colon, cva Colon Cancer Mother Stroke Mother Alzheimer's Disease Father after hip fx, pneumonia Patient Allergies ALLERGIES Allergen Reactions Bactrim [Sulfametho* Other: See Comments severe headache Zoloft [Sertraline * Other: See Comments headache Current Medications Current Outpatient Medications on File Prior to Visit Medication Sig NIFEdipine ER (PROCARDIA XL) 30 mg 24 hr tablet Take 1 tablet by mouth once daily. esomeprazole (NEXIUM) 40 mg capsule Take 1 capsule by mouth once daily. multivitamin with minerals (HAIR,SKIN AND NAILS ORAL) Take 2,500 mcg by mouth. Ascorbic Acid 250 mg chew Take 500 mg by mouth once daily. CALCIUM CARBONATE/VITAMIN D3 (CALCIUM WITH VITAMIN D ORAL) Take 2 tablets by mouth once daily. cyanocobalamin (VITAMIN B-12) 500 mcg tablet Take 1,000 mcg by mouth once daily. ferrous gluconate 236 mg (27 mg iron) Tab Take 1 tablet by mouth once daily. multivitamin tablet Take 1 tablet by mouth once daily. dicyclomine (BENTYL) 20 mg tablet Take 0.5 tablets by mouth three times daily. (Patient not taking: Reported on 11/20/2022) famotidine (PEPCID) 20 mg tablet Take 1 tablet by mouth twice daily. (Patient not taking: Reported on 05/17/2022) albuterol HFA (VENTOLIN HFA) 90 mcg/actuation inhaler Inhale 2 Puffs as instructed every 4 hours as needed for wheezing/shortness of breath. (Patient not taking: Reported on 11/20/2022) No current facility-administered medications on file prior to visit. Social History Social History Tobacco Use Smoking status: Former Packs/day: 0.50 Years: 12.00 (more content not included)... [facility] 11-20-2022 Instructions Jf Crawford MD - 11/20/2022 2:39 PM EDT BONE MINERAL DENSITY PATIENT INSTRUCTIONS ======= Bone mineral density testing measures the amount of calcium in certain parts of your bones. This information determines how strong your bones are. The test is used to detect osteoporosis, a disease in which the bone's mineral content and density are low, increasing a person's risk of fractures. The lumbar spine (lower back) and the hip are the skeletal sites usually examined. For the test, remember that: 1. You cannot take this test if you are . 2. Eat a normal diet on the day of the test. 3. Take your medications as you normally would. 4. DO NOT take calcium supplements (such as Tums) for 24 hours before the test. 5. On the day of the test, leave valuables (jewelry or credit cards) at home. 6. The test should be performed prior to oral, rectal or IV contrast studies, or at least 7 days after any of these studies. For the test, you may be asked to wear a hospital gown. You will lie on your back, on a padded table, in a comfortable position. Generally, you can resume your usual activities immediately. documented in this encounter [facility] 11-20-2022 History of Present illness Narrative Chief Complaint Patient presents with: Follow Up HPI Luis Londono is a 67 year old female who presents here today for routine follow up. Patient has been in good health without hospitalizations or ER visits. No falls in the last 12 months. Patient here today for medication refills and routine check up. States she has been taking her nifedipine for her scleroderma and is doing well without side effects. Has not followed up with rheumatology in more than 5 years now. Allen's esophagus: Patient compliant with PPI. Had EGD in September by Dr. Lewis with finding of Grade B reflux. Started on Misoprostol QID x 12 weeks and would need to repeat EGD in 5 months. Patient states that she has been feeling dizzy in the morning after taking this medication. Lies down and symptoms improve after about 1 hour. Denies significant heartburn, dysphagia, odynophagia. Asthma: Symptoms controlled without daily rx. States she has nebulizer at home, but has not needed it since 2014. Denies cough/SOB/wheezing. Would like rescue inhaler for PRN use. History of depression which is controlled without medication or counseling at this time. PHQ-2 / Depression screen He in the past two weeks denies having felt down, depressed, hopeless or with little interest or pleasure in doing things. Due for COVID vaccine today. 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 Past medical history, appointments, medications, allergies reviewed. 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 Previous Surgical History PAST SURGICAL HISTORY Procedure Laterality Date APPENDECTOMY COLONOSCOPY 03/16/2014 Mild diverticulosis COLONOSCOPY FLX DX W/COLLJ SPEC WHEN PFRMD 07/2004 Colonoscopy COLONOSCOPY FLX DX W/COLLJ SPEC WHEN PFRMD 04/19/2009 COLONOSCOPY GEN ANES 12/06/2020 Repeat in 5 years CORRECT BUNION,SIMPLE Bunion EGD 12/06/2020 EGD TRANSORAL BIOPSY SINGLE/MULTIPLE 11/11/2010 ESOPHAGOGASTRODUODENOSCOPY TRANSORAL DIAGNOSTIC 11/18/2018 EGD EYE SURGERY HX LAPS ABD PRTM&OMENTUM DX W/WO SPEC BR/WA SPX Laparoscopy LAPS ABD PRTM&OMENTUM DX W/WO SPEC BR/WA SPX Laparoscopy MIDLINE INSERTION/CONSULT 01/09/2013 PAST SURGICAL HISTORY OF 01/2013 Gstric restrictive surgery with bypass and Bailey-En-Y PAST SURGICAL HISTORY OF 03/2018 middle finger right hand/end of finger stitched back together after a severe cut Family History FAMILY HISTORY Problem Relation Age of Onset Cancer Mother lung (smoker), colon, cva Colon Cancer Mother Stroke Mother Alzheimer's Disease Father after hip fx, pneumonia Patient Allergies ALLERGIES Allergen Reactions Bactrim [Sulfametho* Other: See Comments severe headache Zoloft [Sertraline * Other: See Comments headache Current Medications Current Outpatient Medications on File Prior to Visit Medication Sig NIFEdipine ER (PROCARDIA XL) 30 mg 24 hr tablet Take 1 tablet by mouth once daily. esomeprazole (NEXIUM) 40 mg capsule Take 1 capsule by mouth once daily. multivitamin with minerals (HAIR,SKIN AND NAILS ORAL) Take 2,500 mcg by mouth. Ascorbic Acid 250 mg chew Take 500 mg by mouth once daily. CALCIUM CARBONATE/VITAMIN D3 (CALCIUM WITH VITAMIN D ORAL) Take 2 tablets by mouth once daily. cyanocobalamin (VITAMIN B-12) 500 mcg tablet Take 1,000 mcg by mouth once daily. ferrous gluconate 236 mg (27 mg iron) Tab Take 1 tablet by mouth once daily. multivitamin tablet Take 1 tablet by mouth once daily. dicyclomine (BENTYL) 20 mg tablet Take 0.5 tablets by mouth three times daily. (Patient not taking: Reported on 11/20/2022) famotidine (PEPCID) 20 mg tablet Take 1 tablet by mouth twice daily. (Patient not taking: Reported on 05/17/2022) albuterol HFA (VENTOLIN HFA) 90 mcg/actuation inhaler Inhale 2 Puffs as instructed every 4 hours as needed for wheezing/shortness of breath. (Patient not taking: Reported on 11/20/2022) No current facility-administered medications on file prior to visit. Social History Social History Tobacco Use Smoking status: Former Packs/day: 0.50 Years: 12.00 Pack years: 6.00 Types: Cigarettes Quit date: 03/29/2012 Years since quittin.6 Smokeless tobacco: Never Tobacco comments: since 1989 smokes an occasional cigarette, last was 03/29/12 Vaping Use Vaping Use: Never used Substance Use Topics Alcohol use: Yes Comment: rarely Drug use: No Review of Symptoms REVIEW OF SYSTEMS GENERAL: No weight loss, malaise or fevers RESPIRATORY: Negative for cough, hemoptysis, wheezing, COPD, dyspnea or shortness of breath CARDIOVASCULAR: Negative for chest pain, leg swelling, hypertension, CHF or palpitations GI: No nausea, vomiting, or diarrhea SKIN: Negative for lesions, rash, and itching EXAM: BP 104/70 Pulse 83 Resp 16 Wt 54.5 kg (120 lb 3.2 oz) SpO2 97% BMI 23.91 kg/m General Appearance: Well appearing, alert, in no acute distress, well-hydrated, well nourished.. Skin: Skin color, texture, turgor normal, no suspicious rashes or lesions. Lungs: Lungs clear to auscultation. No wheezing, rhonchi, rales.. Heart: RRR without murmur, gallop, or rubs. No ectopy. Abdomen: Normal abdominal exam, Abdomen soft, non-tender. Bowel sounds normal. No masses, organomegaly. Extremities: No deformities, edema, skin discoloration, clubbing or cyanosis. Good capillary refill. . Peripheral Pulses: Pulses: dorsalis pedis=4/4, posterior tibial=4/4. Health Maintenance List SPIROMETRY Never done SHINGRIX VACCINE(2 of 3) due on 08/10/2017 BONE DENSITY due on 2019 COVID-19 VACCINE(4 - Booster for Moderna series) due on 11/17/2021 INFLUENZA(1) due on 05/11/2022 ADVANCE DIRECTIVE DISCUSSION Never done MAMMOGRAM due on 12/14/2022 ANNUAL PCP TEAM CHRONIC DISEASE VISIT due on 05/17/2023 DIABETES SCREEN due on 07/01/2024 COLORECTAL CANCER SCREENING due on 12/06/2025 LIPID SCREEN due on 07/01/2026 DTAP,TDAP,TD(2 - Td or Tdap) due on 05/24/2028 HEPATITIS C SCREENING Completed PNEUMOCOCCAL: 65+ Completed Data reviewed Component Latest Ref Rng & Units 07/01/2021 Protein, Total 6.3 - 8.0 g/dL 7.3 Albumin 3.9 - 4.9 g/dL 4.5 Calcium 8.5 - 10.2 mg/dL 9.7 Bilirubin, Total 0.2 - 1.3 mg/dL 0.2 Alkaline Phosphatase 34 - 123 U/L 108 AST 13 - 35 U/L 20 Glucose 74 - 99 mg/dL 85 BUN 7 - 21 mg/dL 11 Creatinine 0.58 - 0.96 mg/dL 0.63 Sodium 136 - 144 mmol/L 142 Potassium 3.7 - 5.1 mmol/L 4.8 Chloride 97 - 105 mmol/L 103 CO2 22 - 30 mmol/L 28 Anion Gap 9 - 18 mmol/L 11 ALT 7 - 38 U/L 17 eGFR- >60 eGFR-All Other Races . >60 Total Cholesterol, Nonfasting <200 mg/dL 292 (H) Triglycerides, Nonfasting <150 mg/dL 160 (H) HDL Cholesterol, Nonfasting >39 mg/dL 103 LDL Cholesterol, Nonfasting <100 mg/dL 157 (H) Non HDL Cholesterol, Nonfasting <130 mg/dL 189 (H) VLDL Cholesterol, Nonfasting <30 mg/dL 32 (H) Total Chol/HDL Ratio, Nonfasting <5.10 mg/dL 2.83 LDL/HDL Ratio, Nonfasting <2.54 mg/dL 1.52 ASSESSMENT/PLAN: 1. Major depressive disorder, recurrent episode, in full remission (HCC) - ICD9: 296.36, ICD10: F33.42 (primary diagnosis) In remission. Will monitor. 2. Pure hypercholesterolemia - ICD9: 272.0, ICD10: E78.00 Due for repeat lipid panel. Discussed low cholesterol diet and exercise. 3. Allen's esophagus without dysplasia - ICD9: 530.85, ICD10: K22.70 Asymptomatic on current regimen. Continue PPI and misoprostol. F/u with GI as recommended. 4. Gastroesophageal reflux disease without esophagitis - ICD9: 530.81, ICD10: K21.9 - Continue treatment with Nexium 40 mg QD 5. Mild intermittent asthma without complication - ICD9: 493.90, ICD10: J45.20 Mild intermittent Asthma stable - Continue current meds - Avoidance of triggers recommended - ALBUTEROL SULFATE HFA 90 MCG/ACTUATION AEROSOL INHALER 6. Hyperlipidemia, mixed - ICD9: 272.2, ICD10: E78.2 - to be determined upon return of lab results - Continue current medication. - Encouraged following a low fat, low cholesterol diet. - Discussed the benefits of regular aerobic exercise and weight loss. - LIPID PANEL, NONFASTING 7. Encounter for immunization - ICD9: V03.89, ICD10: Z23 - PFIZER-[employer] COVID-19 BIVALENT BOOSTER VACCINE, AGE 12+ YR - INFLUENZA VACCINE, PRSV FREE, AGE 65+ YR, HIGH DOSE, QUADRIVALENT (FLUZONE HIGH-DOSE) 8. Encounter for screening for osteoporosis - ICD9: V82.81, ICD10: Z13.820 - DXA-AXIAL SKELETON 9. Pulmonary fibrosis (HCC) - ICD9: 515, ICD10: J84.10 Stable symptoms. Will monitor. 10. Systemic sclerosis (HCC) - ICD9: 710.1, ICD10: M34.9 Doing well on nifedipine. Not following up with rheumatology at this time. Will monitor. 11. Scleroderma of esophagus (HCC) - ICD9: 710.1, ICD10: M34.1 Doing well on nifedipine. Not following up with rheumatology at this time. Will monitor. 12. Scleroderma (HCC) - ICD9: 710.1, ICD10: M34.9 Doing well on nifedipine. Not following up with rheumatology at this time. Will monitor. Jf Crawford MD documented in this encounter [facility] 11-09-2022 Miscellaneous Notes Screening mammogram ordered. Due after 12/14. Patient calls and sets up wellness visit for 11/20/2022. Mammogram order will need to be placed for patient to schedule. Ellen Valentino RN Left a message for pt to call the office and ask to speak to a nurse. Joanne Winter LPN Looks like they have been reaching out to her for yearly preventative health care visit. Please assist with scheduling in next 1 month. Patient has been identified by name and date of : Yes Requested Prescriptions Pending Prescriptions Disp Refills NIFEdipine ER (PROCARDIA XL) 30 mg 24 hr tablet 30 tablet 12 Sig: Take 1 tablet by mouth once daily. RX INSTRUCTIONS: Please try to send today 11/08/2022 patient is out of this medication Patient aware RX will be sent to pharmacy. No need to notify patient. Oly Livingstonsec documented in this encounter [facility] 11-07-2022 Note HNO ID: [id number] Author: Pramod Su MA Service: ? Author Type: Director Service Type: Progress Notes Filed: 11/07/2022 2:27 PM Note Text: POPULATION HEALTH NAVIGATION OUTREACH Action/FYI Patient is on HCC list for below gaps and needs appt to address : J84.10 - Postinflammatory pulmonary fibrosis (HCC) - [id number] Last Billed 07/01/2021 J84.10 - Pulmonary fibrosis (HCC) - [id number] Last Billed 07/01/2021 M34.1 - Scleroderma of esophagus (HCC) - [id number] Last Billed 07/01/2021 M34.9 - Scleroderma (HCC) - [id number] Last Billed 07/01/2021 M34.9 - Systemic sclerosis (HCC) - [id number] Last Billed 07/01/2021 F33.42 - Major depressive disorder, recurrent episode, in full remission (HCC) - [id number] Last Billed 07/01/2021 Care gaps/appts to address: Well exam INFLUENZA(1) MAMMOGRAM Outcomes: Left message for patient to call me back directly to schedule. Also sent TMAThart message. Patient Identified by Name and : NO Outreach Outcome/Action Unable to reach patient: Left message Foodyhart message sent Did you use a PCP flex slot to schedule this appointment? N/A Reason for Outreach HCC or suspected condition Payer: Payor: HU[employer]NA MEDICARE / Plan: HU[employer]NA MEDICARE PPO / Product Type: PPO / Care Gap Reviewed:: Annual Wellness visit Breast Cancer screening Flu Vaccine Reminder: Reminder note to check Health Maintenance for items below Health Maintenance items due: SPIROMETRY Never done SHINGRIX VACCINE(2 of 3) due on 08/10/2017 BONE DENSITY due on 2019 COVID-19 VACCINE(4 - Booster for Moderna series) due on 11/17/2021 INFLUENZA(1) due on 05/11/2022 ADVANCE DIRECTIVE DISCUSSION Never done MAMMOGRAM due on 12/14/2022 Navigation Signature: Pramod Su MA November 07, 2022 1:36 PM [facility] 11-07-2022 Note Patient Outreach (NE TNAV) LUIS LONDONO ([id number]) 1955 F Date Time Provider Department 11/07/22 PRAMOD SU During your visit today, we recorded the following information about you: Pramod Su MA 11/07/2022 2:27 PM Signed POPULATION HEALTH NAVIGATION OUTREACH Action/ Patient is on HCC list for below gaps and needs appt to address : J84.10 - Postinflammatory pulmonary fibrosis (HCC) - [id number] Last Billed 07/01/2021 J84.10 - Pulmonary fibrosis (HCC) - [id number] Last Billed 07/01/2021 M34.1 - Scleroderma of esophagus (HCC) - [id number] Last Billed 07/01/2021 M34.9 - Scleroderma (HCC) - [id number] Last Billed 07/01/2021 M34.9 - Systemic sclerosis (HCC) - [id number] Last Billed 07/01/2021 F33.42 - Major depressive disorder, recurrent episode, in full remission (HCC) - [id number] Last Billed 07/01/2021 Care gaps/appts to address: Well exam INFLUENZA(1) MAMMOGRAM Outcomes: Left message for patient to call me back directly to schedule. Also sent TMAThart message. Patient Identified by Name and : NO Outreach Outcome/Action Unable to reach patient: Left message MyChart message sent Did you use a PCP flex slot to schedule this appointment? N/A Reason for Outreach HCC or suspected condition Payer: Payor: HUMANA MEDICARE / Plan: HU[employer]NA MEDICARE PPO / Product Type: PPO / Care Gap Reviewed:: Annual Wellness visit Breast Cancer screening Flu Vaccine Reminder: Reminder note to check Health Maintenance for items below Health Maintenance items due: SPIROMETRY Never done SHINGRIX VACCINE(2 of 3) due on 08/10/2017 BONE DENSITY due on 2019 COVID-19 VACCINE(4 - Booster for Moderna series) due on 11/17/2021 INFLUENZA(1) due on 05/11/2022 ADVANCE DIRECTIVE DISCUSSION Never done MAMMOGRAM due on 12/14/2022 Navigation Signature: Pramod Su MA November 07, 2022 1:36 PM Allergies As of Date: 11/07/2022 Noted Allergy Reaction BACTRIM (SULFAMETHOXAZOLE-TRIMETH*05/26/20 05 14 - Other: See Comments Comments: severe headache ZOLOFT (SERTRALINE HCL) 05/26/2005 14 - Other: See Comments Comments: headache Date Reviewed: 05/17/2022 Reviewed by: Patricia Gonzalez LPN - Fully Assessed Reason for Visit: Population Health Navigation Outreach [3910] Cmt: HCC Prescriptions as of 11/07/2022 - dicyclomine (BENTYL) 20 mg tablet Take 0.5 tablets by mouth three times daily. - famotidine (PEPCID) 20 mg tablet Take 1 tablet by mouth twice daily. - NIFEdipine ER (PROCARDIA XL) 30 mg 24 hr tablet Take 1 tablet by mouth once daily. - esomeprazole (NEXIUM) 40 mg capsule Take 1 capsule by mouth once daily. - albuterol HFA (VENTOLIN HFA) 90 mcg/actuation inhaler Inhale 2 Puffs as instructed every 4 hours as needed for wheezing/shortness of breath. - multivitamin with minerals (HAIR,SKIN AND NAILS ORAL) Take 2,500 mcg by mouth. - Ascorbic Acid (VITAMIN C) 250 mg chew Take 500 mg by mouth once daily. - CALCIUM CARBONATE/VITAMIN D3 (CALCIUM WITH VITAMIN D ORAL) Take 2 tablets by mouth once daily. - cyanocobalamin (VITAMIN B-12) 500 mcg Tab Take 1,000 mcg by mouth once daily. - ferrous gluconate 236 mg (27 mg iron) Tab Take 1 tablet by mouth once daily. - multivitamin (MULTIPLE VITAMIN) tablet Take 1 tablet by mouth once daily. Meds Comments as of 09/30/2015: Pt. States all meds are current. MA Pt. States all meds are current. ks ma Patient states no change in medications 09/30/15. MJ Problem List As Of Date 11/07/2022 Noted Resolved HYPERLIPIDEMIA NEC/NOS [E78.5] 10/03/2005 DIFFUS CYSTIC MASTOPATHY [N60.19] 10/03/2005 Plantar fascial fibromatosis [M72.2] 05/10/2006 11/24/2016 SYSTEMIC SCLEROSIS [M34.9] 07/30/2007 Asthma [J45.909] 09/16/2007 POSTINFLAM PULM FIBROSIS [J84.10] 12/10/2008 Examination of Participant in Clinical Trial [Z*11/23/2009 Esophageal reflux [K21.9] 11/11/2010 09/24/2013 Esophagitis, unspecified [K20.90] 11/11/2010 09/24/2013 Scleroderma [M34.9] 01/10/2012 Nicotine abuse [Z72.0] 04/05/2012 09/24/2013 Major depressive disorder, recurrent episode, i*04/05/2012 Morbid obesity [E66.01] 02/19/2013 09/24/2013 Family hx of colon cancer [Z80.0] 12/23/2013 Gastroesophageal reflux disease without esophag*09/30/2015 Pharyngoesophageal dysphagia [R13.14] 09/30/2015 Allen's esophagus without dysplasia [K22.70] 09/30/2015 Family history of colon cancer [Z80.0] 09/30/2015 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
J84.10 - Pulmonary fibrosis (HCC) - [id number] Last Billed 07/02/2020
F33.42 - Major depressive disorder, recurrent episode, in full remission (HCC) - [id number] Last Billed 07/02/2020
Care gaps/appts to address: Well exam ADVANCE DIRECTIVE DISCUSSION INFLUENZA(1) Outcomes: Left message for patient to call me back directly to schedule. Also sent TRADE TO REBATEt message. Pt identified by name and : NO Outreach Outcome/Action Unable to reach patient: Left message Foodyhart message sent Did you use a PCP flex slot to schedule this appointment? N/A Reason for Outreach HCC or suspected condition Payer: Payor: HUMANA MEDICARE / Plan: HU[employer]NA MEDICARE PPO / Product Type: PPO / Care Gap Reviewed:: Annual Wellness visit Flu vaccine Reminder: Reminder note to check Health Maintenance for items below Health Maintenance items due: SPIROMETRY Never done SHINGRIX VACCINE(2 of 3) due on 08/10/2017 BONE DENSITY due on 2019 ADVANCE DIRECTIVE DISCUSSION Never done COVID-19 VACCINE(4 - Booster for Moderna series) due on 11/17/2021 INFLUENZA(1) due on 05/11/2022 Message Sent to Practice: No Navigation Signature: Pramod Su MA August 02, 2022 12:50 PM documented in this encounter [facility] 05-18-2022 Miscellaneous Notes Pt called in asking about a message from a Gastro provider about getting her into a provider at [facility]. Did not know this note was in at that time. Let Pt know that I could send her information to Dr Lewis's Office. Sent referral, demo sheet, and OV notes. Pt did not want to have appointment canceled in [place] depending on when she could get in with him. Pt will call back in and cancel if she can get in sooner. Patient telephoned. Message left to call back regarding below message. Patricia Gonzalez LPN I am happy to send referral over. Dr. Lewis sees patient over there. Let her know she can call and schedule with him. Please send referral over. Sachin Huntley APRN.ARIAN Pt calling regarding appt with GI scheduled in Aug. Pt previously spoke to a television analyzer who offered her an appt in [place]. Pt states she did not take that appt because she doesn't know anything about the area & she'd have to make a dry run before appt. Pt asked television analyzer for an appt at [facility] bc she is familiar with that. Appt was scheduled. Pt called back to ask if she could be seen by a GI at [facility]. Explained pt pt that that would be fine, she could call & ask who is avail for her to see then we could fax a referral to them so she could schedule. Pt became angry & said we bounce people all over the place & dont take care of them. Pt stated she is not going all over the [place] place to be seen. Pt stated thanks for nothing & hung up the phone. Tania Ferrer LPN documented in this encounter [facility] 02-13-2022 History of Present illness Narrative POPULATION HEALTH NAVIGATION OUTREACH Action/I February 13, 2022 HCC Gaps J84.10 - Postinflammatory pulmonary fibrosis (HCC) - [id number] Last Billed 07/02/2020 J84.10 - Pulmonary fibrosis (HCC) - [id number] Last Billed 07/02/2020 M34.1 - Scleroderma of esophagus (HCC) - [id number] Last Billed 07/02/2020 M34.9 - Systemic sclerosis (HCC) - [id number] Last Billed 07/02/2020 M34.9 - Scleroderma (HCC) - [id number] Last Billed 07/02/2020 F33.42 - Major depressive disorder, recurrent episode, in full remission (HCC) - [id number] Last Billed 07/02/2020 ANH with Jf Crawford MD was 3..2021 HM Due: Advance Directive Outcome: LM on voicemail for patient to return call My chart message also sent to patient Pt identified by name and : NO Outreach Outcome/Action Unable to reach patient: Left message MyChart message sent Did you use a PCP flex slot to schedule this appointment? N/A Reason for Outreach HCC or suspected condition Payer: Payor: HUMANA MEDICARE / Plan: HU[employer]NA MEDICARE PPO / Product Type: PPO / Care Gap Reviewed:: Annual Wellness visit Reminder: Reminder note to check Health Maintenance for items below Health Maintenance items due: SPIROMETRY Never done SHINGRIX VACCINE(2 of 3) due on 08/10/2017 BONE DENSITY due on 2019 ADVANCE DIRECTIVE DISCUSSION Never done COVID-19 VACCINE(4 - Booster for Moderna series) due on 01/20/2022 Message Sent to Practice: No Navigation Signature: Terrie Palomino MA February 13, 2022 11:58 AM documented in this encounter [facility] 12-23-2021 Miscellaneous Notes Notified patient of same. Patient states that she has trouble swallowing the tablets. Did suggest that she dissolve the carafate in a little bit of water and take that way. Patient to call with an update in 1-2 weeks. Received notice that carafate liquid is too expensive. She has pills at home I would have her restart. Continue Nexium and Pepcid. If symptoms not improving, will refer to general surgery/GI. documented in this encounter [facility] 12-15-2021 Miscellaneous Notes December 15, 2021 PID: [id number] Luis Londono [address] [place] [address] Dear Ms. Londono, We are pleased to inform you that the results of your recent breast imaging exam on 12/14/2021 are normal. Early detection of cancer is very important. We also understand recommendations regarding breast cancer screening are controversial. Please discuss with your primary care provider which strategy is best for you and whether a mammogram is right for you. Your imaging studies and report will be kept on file at [facility] as part of your permanent medical record and are available for your continuing care. Thank you for allowing us to help in meeting your health care needs. Sincerely, Dr. Dior Interpreting Radiologist [facility] (Normal over 40) documented in this encounter [facility] documented as of this encounter (statuses as of 12/15/2021) [facility] History of Past illness Narrative* Problem Noted Date Resolved Date Morbid obesity 02/19/2013 09/24/2013 Nicotine abuse 04/05/2012 09/24/2013 Esophageal reflux 11/11/2010 09/24/2013 Esophagitis, unspecified 11/11/2010 014 Plantar fascial fibromatosis 05/10/2006 documented as of this encounter (statuses as of 12/17/2021) [facility] of [facility] illness Narrative* Problem Noted Date Resolved Date Morbid obesity 02/19/2013 09/24/2013 Nicotine abuse 04/05/2012 09/24/2013 Esophageal reflux 11/11/2010 09/24/2013 Esophagitis, unspecified 11/11/2010 014 Plantar fascial fibromatosis 05/10/2006 documented as of this encounter (statuses as of 12/23/2021) [facility] Narrative* Problem Noted Date Resolved Date Morbid obesity 02/19/2013 09/24/2013 Nicotine abuse 04/05/2012 09/24/2013 Esophageal reflux 11/11/2010 09/24/2013 Esophagitis, unspecified 11/11/2010 014 Plantar fascial fibromatosis 05/10/2006 documented as of this encounter (statuses as of 02/13/2022) [facility] Narrative* Problem Noted Date Resolved Date Morbid obesity 02/19/2013 09/24/2013 Nicotine abuse 04/05/2012 09/24/2013 Esophageal reflux 11/11/2010 09/24/2013 Esophagitis, unspecified 11/11/2010 014 Plantar fascial fibromatosis 05/10/2006 documented as of this encounter (statuses as of 05/18/2022) [facility]ative* Problem Noted Date Resolved Date Morbid obesity 02/19/2013 09/24/2013 Nicotine abuse 04/05/2012 09/24/2013 Esophageal reflux 11/11/2010 09/24/2013 Esophagitis, unspecified 11/11/2010 014 Plantar fascial fibromatosis 05/10/2006 documented as of this encounter (statuses as of 08/02/2022) [facility]* Problem Noted Date Resolved Date Morbid obesity 02/19/2013 09/24/2013 Nicotine abuse 04/05/2012 09/24/2013 Esophageal reflux 11/11/2010 09/24/2013 Esophagitis, unspecified 11/11/2010 014 Plantar fascial fibromatosis 05/10/2006 documented as of this encounter (statuses as of 11/15/2022) [facility]* Problem Noted Date Resolved Date Morbid obesity 02/19/2013 09/24/2013 Nicotine abuse 04/05/2012 09/24/2013 Esophageal reflux 11/11/2010 09/24/2013 Esophagitis, unspecified 11/11/2010 014 Plantar fascial fibromatosis 05/10/2006 documented as of this encounter (statuses as of 11/21/2022) [facility]* Problem Noted Date Resolved Date Morbid obesity 02/19/2013 09/24/2013 Nicotine abuse 04/05/2012 09/24/2013 Esophageal reflux 11/11/2010 09/24/2013 Esophagitis, unspecified 11/11/2010 014 Plantar fascial fibromatosis 05/10/2006 documented as of this encounter (statuses as of 12/05/2022) [facility]* Problem Noted Date Resolved Date Morbid obesity 02/19/2013 09/24/2013 Nicotine abuse 04/05/2012 09/24/2013 Esophageal reflux 11/11/2010 09/24/2013 Esophagitis, unspecified 11/11/2010 014 Plantar fascial fibromatosis 05/10/2006 documented as of this encounter (statuses as of 12/22/2022) [facility]* Problem Noted Date Diagnosed Date Resolved Date Morbid obesity 02/19/2013 09/24/2013 Nicotine abuse 04/05/2012 09/24/2013 Esophageal reflux 11/11/2010 09/24/2013 Esophagitis, unspecified 11/11/2010 Plantar fascial fibromatosis 05/10/2006 11/24/2016 documented as of this encounter (statuses as of 05/24/2023) [facility]* Problem Noted Date Diagnosed Date Resolved Date Morbid obesity 02/19/2013 09/24/2013 Nicotine abuse 04/05/2012 09/24/2013 Esophageal reflux 11/11/2010 09/24/2013 Esophagitis, unspecified 11/11/2010 Plantar fascial fibromatosis 05/10/2006 11/24/2016 documented as of this encounter (statuses as of 07/15/2023) [facility]* Problem Noted Date Diagnosed Date Resolved Date Morbid obesity 02/19/2013 09/24/2013 Nicotine abuse 04/05/2012 09/24/2013 Esophageal reflux 11/11/2010 09/24/2013 Esophagitis, unspecified 11/11/2010 Plantar fascial fibromatosis 05/10/2006 11/24/2016 documented as of this encounter (statuses as of 07/15/2023) [facility] Narrative* Problem Noted Date Diagnosed Date Resolved Date Morbid obesity 02/19/2013 09/24/2013 Nicotine abuse 04/05/2012 09/24/2013 Esophageal reflux 11/11/2010 09/24/2013 Esophagitis, unspecified 11/11/2010 Plantar fascial fibromatosis 05/10/2006 11/24/2016 documented as of this encounter (statuses as of 07/24/2023) [facility] [place] [facility] Diagnosis Screening mammogram for breast cancer [facility] [place] [facility] Diagnosis Screening mammogram, encounter for- Primary [facility] [place] [facility] Diagnosis Major depressive disorder, recurrent episode, in full remission (HCC)- Primary Major depressive disorder, recurrent episode, in full remission Pure hypercholesterolemia Allen's esophagus without dysplasia Allen's esophagus Gastroesophageal reflux disease without esophagitis Esophageal reflux Mild intermittent asthma without complication Unspecified asthma Hyperlipidemia, mixed Mixed hyperlipidemia Encounter for immunization Need for other specified prophylactic vaccination against single bacterial disease Encounter for screening for osteoporosis Special screening for osteoporosis Pulmonary fibrosis (HCC) 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 Scleroderma (HCC) Systemic sclerosis [facility] [place] [facility] Diagnosis Pure hypercholesterolemia- Primary Allen's esophagus without dysplasia Allen's esophagus Family discord Unspecified family circumstance documented in this encounter [facility] note* Diagnosis Encounter for screening for osteoporosis Special screening for osteoporosis documented in this encounter [facility] note* Diagnosis Screening mammogram, encounter for documented in this encounter [facility] note* Diagnosis Pain- Primary Generalized pain documented in this encounter [facility] for referral (narrative)* Diagnostic Procedure Only (Routine) - Closed Specialty Diagnoses / Procedures Referred By Martita ruiz Referred To Contact [facility] Diagnoses Screening mammogram for breast cancer Procedures KATHARINA SCREENING SCREENING MAMMOGRAPHY BI 2-VIEW BREAST INC Jf Hernandez MD [address] [place] [id number] [facility] [address] [address] Referral ID Status Reason Start Date Expiration Date V isits Requested Visits Authorized [id number] Closed Auto-Generate d Referral 07/01/2021 07/31/2022 1 1 [facility] for referral (narrative)* Diagnostic Procedure Only (Routine) - Pending Review Specialty Diagnoses / Procedures Referred By Martita ruiz Referred To Contact [facility] Diagnoses Screening mammogram, encounter for Procedures KATHARINA SCREENING SCREENING MAMMOGRAPHY BI 2-VIEW BREAST INC Jf Hernandez MD [address] [place] [address] [facility] [address] [address] Referral ID Status Reason Start Date Expiration Date Visits Requested Visits Authorized [id number] Pending Review Auto-Generat ed Referral 11/09/2022 12/09/2023 1 1 [facility] for referral (narrative)* Diagnostic Procedure Only (Routine) - Closed Specialty Diagnoses / Procedures Referred By Martita ruiz Referred To Contact [facility] Diagnoses Screening mammogram, encounter for Procedures KATHARINA SCREENING SCREENING MAMMOGRAPHY BI 2-VIEW BREAST INC Jf Hernandez MD [address] [place] [address] [facility] [address] [place] [address] Referral ID Status Reason Start Date Expiration Date V isits Requested Visits Authorized [id number] Closed Auto-Generate d Referral 11/09/2022 12/09/2023 1 1 [facility] for visit Narrative* Diagnostic Procedure Only (Routine) - Closed Specialty Diagnoses / Procedures Referred By Contac t Referred To Contact [facility] Diagnoses Screening mammogram for breast cancer Procedures KATHARINA SCREENING SCREENING MAMMOGRAPHY BI 2-VIEW BREAST INC Jf Hernandez MD [address] [place] [address] [facility] [address] [place] [address] Referral ID Status Reason Start Date Expiration Date V isits Requested Visits Authorized [id number] Closed Auto-Generate d Referral 07/01/2021 07/31/2022 1 1 [facility] for visit Narrative* Diagnostic Procedure Only (Routine) - Closed Specialty Diagnoses / Procedures Referred By Martita ruiz Referred To Contact [facility] Diagnoses Screening mammogram, encounter for Procedures KATHARINA SCREENING SCREENING MAMMOGRAPHY BI 2-VIEW BREAST INC Jf Hernandez MD [address] [place] [address] [facility] [address] [place] [address] Referral ID Status Reason Start Date Expiration Date V isits Requested Visits Authorized [id number] Closed Auto-Generate d Referral 11/09/2022 12/09/2023 1 1 [facility] Summary Purpose Family History No Family History Records FoundNo Family History Records FoundNo Family History Records Found Advance Directives No Advanced Directives Records FoundDocuments on File Type Date Recorded Patient Workers Compensation Examiner Expl anation Advance Directive(s) 12/06/2020 10:44 AM Advance Directive(s) 11/29/2020 11:06 AM Advance Directive(s) 11/18/2018 1:23 PM Documents on File Type Date Recorded Patient Workers Compensation Examiner Expl anation Advance Directive(s) 12/06/2020 10:44 AM Advance Directive(s) 11/29/2020 11:06 AM Advance Directive(s) 11/18/2018 1:23 PM Additional Source Comments INFORMATION SOURCE (unrecogn ized section and content) DATE CREATED AUTHOR AUTHOR'S ORGANHITESH ATION 01/19/2021 [facility] DATE CREATED AUTHOR AUTHOR'S ORGANIZ ATION 10/05/2023 [facility] Source Comments (unrecognize d section and content) In the event this informatio n is protected by the Federal Confidentiality of Alcohol and Drug Abuse Patient Records regulations: The Federal rules restrict any use of the information to criminally investigate or prosecute any alcohol or drug abuse patient.[facility] the event this information is protected by the Federal Confidentiality of Alcohol and Drug Abuse Patient Records regulations: The Federal rules restrict any use of the information to criminally investigate or prosecute any alcohol or drug abuse patient.[facility] the event this information is protected by the Federal Confidentiality of Alcohol and Drug Abuse Patient Records regulations: The Federal rules restrict any use of the information to criminally investigate or prosecute any alcohol or drug abuse patient.[facility] the event this information is protected by the Federal Confidentiality of Alcohol and Drug Abuse Patient Records regulations: The Federal rules restrict any use of the information to criminally investigate or prosecute any alcohol or drug abuse patient.[facility] the event this information is protected by the Federal Confidentiality of Alcohol and Drug Abuse Patient Records regulations: The Federal rules restrict any use of the information to criminally investigate or prosecute any alcohol or drug abuse patient.[facility] the event this information is protected by the Federal Confidentiality of Alcohol and Drug Abuse Patient Records regulations: The Federal rules restrict any use of the information to criminally investigate or prosecute any alcohol or drug abuse patient.[facility] the event this information is protected by the Federal Confidentiality of Alcohol and Drug Abuse Patient Records regulations: The Federal rules restrict any use of the information to criminally investigate or prosecute any alcohol or drug abuse patient.[facility] the event this information is protected by the Federal Confidentiality of Alcohol and Drug Abuse Patient Records regulations: The Federal rules restrict any use of the information to criminally investigate or prosecute any alcohol or drug abuse patient.[facility] the event this information is protected by the Federal Confidentiality of Alcohol and Drug Abuse Patient Records regulations: The Federal rules restrict any use of the information to criminally investigate or prosecute any alcohol or drug abuse patient.[facility] the event this information is protected by the Federal Confidentiality of Alcohol and Drug Abuse Patient Records regulations: The Federal rules restrict any use of the information to criminally investigate or prosecute any alcohol or drug abuse patient.[facility] the event this information is protected by the Federal Confidentiality of Alcohol and Drug Abuse Patient Records regulations: The Federal rules restrict any use of the information to criminally investigate or prosecute any alcohol or drug abuse patient.[facility] Center[facility] the event this information is protected by the Federal Confidentiality of Alcohol and Drug Abuse Patient Records regulations: The Federal rules restrict any use of the information to criminally investigate or prosecute any alcohol or drug abuse patient.[facility] Center[facility] the event this information is protected by the Federal Confidentiality of Alcohol and Drug Abuse Patient Records regulations: The Federal rules restrict any use of the information to criminally investigate or prosecute any alcohol or drug abuse patient.[facility] Center[facility] the event this information is protected by the Federal Confidentiality of Alcohol and Drug Abuse Patient Records regulations: The Federal rules restrict any use of the information to criminally investigate or prosecute any alcohol or drug abuse patient.[facility] Care Teams (unrecognized sec tion and content) Photographic Double Relationship Specialty Start Date End Date Jf Crawford MD [address] [place] [address] PCP - General Family Practice 07/01/21 Photographic Double Relationship Specialty Start Date End Date fJ Crawford MD [address] [place] [address] PCP - General Family Practice 07/01/21 Photographic Double Relationship Specialty Start Date End Date Jf Crawford MD [address] [place] [address] PCP - General Family Practice 07/01/21 Photographic Double Relationship Specialty Start Date End Date Jf Crawford MD [address] [place] [address] PCP - General Family Practice 07/01/21 Photographic Double Relationship Specialty Start Date End Date Jf Crawford MD [address] [place] [address] PCP - General Family Medicine 07/01/21 Photographic Double Relationship Specialty Start Date End Date Jf Crawford MD [address] [place] [address] PCP - General Family Medicine 07/01/21 Photographic Double Relationship Specialty Start Date End Date Jf Crawford MD [address] [place] [address] PCP - General Family Medicine 07/01/21 Photographic Double Relationship Specialty Start Date End Date Jf Crawford MD [address] [place] [address] PCP - General Family Medicine 07/01/21 Photographic Double Relationship Specialty Start Date End Date Jf Crawford MD [address] [place] [address] PCP - General Family Medicine 07/01/21 Photographic Double Relationship Specialty Start Date End Date Jf Crawford MD [address] [place] [address] PCP - General Family Medicine 07/01/21 Photographic Double Relationship Specialty Start Date End Date Jf Crawford MD [address] [place], [place] [id number] PCP - General Family Medicine 07/01/21 Photographic Double Relationship Specialty Start Date End Date Jf Crawford MD [address] [facility] [place] [id number] PCP - General Family Medicine 07/01/21 Reason for Visit (unrecogniz ed section and content) Reason Onset Date Comments Population Health Navigation Outreach 02/13/2022 HCC Gaps Reason Comments Future Appointment Reason Onset Date Comments Population Health Navigation Outreach 08/02/2022 HCC Reason Comments Refill Request Please try to send t allison, patient is out of this medication, Reason Comments Follow Up Reason Comments Results BMD Reason Comments F/U 6 Month Reason Comments Neck Pain Mostly left side angela n into the shoulder area. FOR RECORDS PERTAINING TO PATIENTS WHO ARE OR HAVE BEEN ENROLLED IN A CHEMICAL DEPENDENCY/SUBSTANCEABUSE PROGRAM, SOME INFORMATION MAY BE OMITTED. This clinical summary was aggregated from multiple sources. Caution should be exercised in using it in the provision of clinical care. This summary normalizes information from multiple sources, and as a consequence, information in this document may materially change the coding, format and clinical context of patient data. In addition, data may be omitted in some cases. CLINICAL DECISIONS SHOULD BE BASED ON THE PRIMARY CLINICAL RECORDS. [employer] provides no warranty or guarantee of the accuracy or completeness of information in this document.
--- NOTE | 2023-11-10 13:32 | EX.ED.DYSGE1 ---
HPI <Gina Alves RN - Last Filed: 11/10/23 14:52> History of Present Illness Chief Complaint: Chest Pain Informant: patient Onset/Context/Timing Onset: Weeks (3) Context: Onset with activity Timing: Intermittent Quality: Stabbing Location: Left upper, anterior axillary line Current Severity: 5/10 Maximum Severity: 7/10 Worsened by: Activity Relieved by: Rest Associated Symptoms Associated Symptoms: Dizziness, shortness of breath, headache, nausea Narrative Narrative: Patient with a past medical history significant for GERD, chronic nausea, Allen's esophagitis, hypertension presents to the ED for intermittent headache, dizziness, shortness of breath, chest pain, and nausea beginning 3 weeks ago.. Patient reports the symptoms generally occur in the morning after awakening and having a small breakfast. She reports her dizziness is worse when she puts her head down to dry her hair with a inspector hairspring and raises back up. She describes the chest pain as sharp and is located at the left upper anterior axillary line. Pain is reproducible with palpation. She reports symptoms occasionally occur with activity, resolving with rest. She was seen at a walk-in clinic yesterday and referred to the hospital for an EKG. She did not obtain an EKG yesterday. Today symptoms occurred after being out to breakfast with her family. Therefore she decided to seek medical attention. She does report she has had similar symptoms in the past and was informed she had hypoglycemia and instructed to eat candy when she had the symptoms. She does intermittently eat candy with only occasional resolution of symptoms. She denies any injury or recent travel. She does report a DVT many years ago when she was . She also does admit to occasional unprovoked palpitations. She was a prior smoker. She drinks alcohol occasionally. She also reports only significant past family history is grandfathers from [facility] at an unknown age. Prior similar symptoms: No Recent Illness/Hospitalization: No PFSH <Gina Alves RN - Last Filed: 11/10/23 14:52> PFSH Medical History Alcohol use Asthma Back pain Barretts esophagus Diverticulosis of colon Epigastric pain Esophagitis Former smoker Gastric reflux Heartburn Hemorrhage of gastrointestinal tract High cholesterol History of scleroderma Injury of head and neck Internal hemorrhoids Low iron Post-menopausal Postinflammatory pulmonary fibrosis Pure hypercholesterolemia Renal cyst Shortness of breath on exertion Wears glasses Home Medications ascorbic acid (vitamin C) 250 mg tablet 250 mg PO BID 06/08/22 [History Last Taken Unknown] cyanocobalamin (vitamin B-12) 500 mcg tablet 500 mcg PO DAILY 06/08/22 [History Last Taken Unknown] ferrous gluconate 236 mg (27 mg iron) tablet 236 mg PO DAILY 06/08/22 [History Last Taken Unknown] nifedipine 30 mg tablet,extended release 30 mg PO DAILY 06/08/22 [History Last Taken Unknown] esomeprazole magnesium 40 mg capsule,delayed release 40 mg PO QAM #90 caps 08/07/22 [Rx Last Taken Unknown] calcium 600 mg capsule 600 mg PO DAILY 10/02/22 [History Last Taken Unknown] [id number] 8 mg-folic 400 mcg-K 50 mcg-lutein 300 mcg tablet (Multivitamin Women 50 Plus) 1 tab PO DAILY 10/02/22 [History Last Taken Unknown] fluconazole 100 mg tablet 100 mg PO DAILY #14 tabs 10/17/22 [Rx Last Taken Unknown] amitriptyline 25 mg tablet 25 mg PO QHS #30 tabs 03/14/23 [Rx Last Taken Unknown] Allergy/AdvReac Type Severity Reaction Status Date / Time sulfamethoxazole Allergy Anaphylaxis Verified 11/10/23 13:06 [From Bactrim] trimethoprim [From Bactrim] Allergy Anaphylaxis Verified 11/10/23 13:06 sertraline [From Zoloft] AdvReac Other Verified 11/10/23 13:06 Surgical History History of esophagogastroduodenoscopy (EGD) History of Paulina fundoplication Hx of appendectomy Hx of colonoscopy Hx of tubal ligation Social History Smoking Status: Former smoker quit date: 03/29/12 alcohol intake: current alcohol intake frequency: holidays/special occasions only ROS <Gina Alves RN - Last Filed: 11/10/23 14:52> ROS ED Constitutional Constitutional ED: Denies chills, fever(s) or sweats Eyes Eyes: Denies blurry vision, change in vision or diplopia ENT ENT ED: Denies rhinorrhea or sore throat Cardiovascular Cardiovascular: Reports chest pain and palpitations; Denies orthopnea or racing heartbeat Respiratory/Chest Respiratory/Chest: Reports dyspnea and dyspnea on exertion; Denies cough or orthopnea Gastrointestinal Gastrointestinal: Reports nausea; Denies abdominal pain, constipation, diarrhea, melena or vomiting Genitourinary Genitourinary ED: Denies dysuria, hematuria or urinary frequency Musculoskeletal Musculoskeletal: Denies arthralgias or myalgias Neurologic Neurologic: Reports headache(s); Denies paresthesias or weakness Hematologic/Lymphatic Hematologic/Lymphatic: Reports systems reviewed and no addt'l complaints, except as documented EXAM <Gina Alves RN - Last Filed: 11/10/23 14:52> Physical Exam Narrative Exam Narrative: Awake, alert, well-kept female. Const Vital Signs: 11/10/23 13:07 11/10/23 13:14 11/10/23 13:14 Temperature 98.2 F Temperature Source Temporal Pulse Rate 95 Respiratory Rate 14 Respiratory Effort Normal Blood Pressure 140/97 H Blood Pressure Mean 111 Pulse Ox 100 Oxygen Delivery Method Room Air Room Air Positive well nourished and well developed General Appearance ED: well developed and NAD HEENT Reports moist mucous membranes Eyes PERRL and EOMs intact bilaterally Neck no lymphadenopathy, supple and no JVD Chest Wall inspection of chest normal Chest Narrative: Left upper anterior axillary line tenderness with palpation. Resp normal respiratory effort and clear to auscultation bilaterally Auscultation: Negative for rales, rhonchi or wheezes Cardio regular rate, regular rhythm, S1 normal heart sound and S2 normal heart sound GI normal to inspection, nondistended, normoactive bowel sounds and non-tender Auscultation: normoactive bowel sounds Palpation: soft Extremity normal to inspection General Extremety ED: Negative for edema or tenderness General Extremity: Negative for edema Neuro oriented x3 Sensorium / Orientation: alert Motor Exam: strength 5/5 throughout Psych mental status grossly normal Skin no rashes or lesions noted, no wounds and skin turgor normal <Dr. Raul Guardado MD - Last Filed: 11/10/23 14:51> Physical Exam Const Vital Signs: 11/10/23 13:07 11/10/23 13:14 11/10/23 13:14 Temperature 98.2 F Temperature Source Temporal Pulse Rate 95 Respiratory Rate 14 Respiratory Effort Normal Blood Pressure 140/97 H Blood Pressure Mean 111 Pulse Ox 100 Oxygen Delivery Method Room Air Room Air [facility] <Gina Alves RN - Last Filed: 11/10/23 14:52> [facility] Narrative Medical decision making narrative: Medical decision making narrative: Patient placed on bus driver/monitor. IV line initiated. Labwork obtained to evaluate for leukocytosis, anemia, and electrolyte derangement. Chest x-ray obtained to evaluate for acute lung pathology, cardiac size, or mediastinal abnormality. I have personally performed a face to face assessment of the patient and have reviewed the KEVIN Note. I performed a substantive portion of the visit including all aspects of the following. My biggs findings include: History is [68-year-old with atypical morning left axillary pain. No history of cardiac disease. No prior cardiac cath. Currently she is symptom-free. No history of PE or recent risk factors. No leg pain or swelling. No pleuritic pain.] Exam is [she is 8-year-old female no acute distress vital signs stable afebrile. Pulse ox 100% on room air no signs hypoxia. H EENT exam unremarkable. Neck nontender. Lungs clear to auscultation. Heart regular rate and rhythm rate about 95 no murmur. Chest wall and ribs nontender. Her left axilla there is no redness, swelling, discoloration or rash. No bony tenderness or deformity. No reproducible pain. Abdomen soft nontender. Moving all 4 extremities. Nontender no edema. Back exam nontender. Neurologically she is awake and alert no focal motor deficits.] Medical Decision Making [68-year-old female with atypical, nonexertional chest pain. Undergo cardiac workup.] Other additions or changes: [None] History & Record Review Discussion w/independent historian: Patient Lab Data Labs: Laboratory Results - last 24 hr 11/10/23 13:35 WBC 10.6 RBC 4.48 Hgb 13.3 Hct 41.1 MCV 91.7 MCH 29.7 MCHC 32.4 RDW Std Deviation 44.5 H RDW Coeff of Bala 13.2 Plt Count 317 MPV 9.9 Immature Gran % (Auto) 0.200 Neut % (Auto) 67.8 Lymph % (Auto) 20.6 [place] % (Auto) 10.1 H Eos % (Auto) 0.7 Baso % (Auto) 0.6 Absolute Neuts (auto) 7.2 Absolute Lymphs (auto) 2.18 Nucleated RBC % 0 Sodium 140 Potassium 3.9 Chloride 108 H Carbon Dioxide 29.0 Anion Gap 3 L BUN 20 H Creatinine 0.86 Estim Creat Clear Calc 48.52 Est GFR (MDRD) Af Amer 85 Est GFR (MDRD) Non-Af 70 BUN/Creatinine Ratio 23.3 H Glucose 76 Calcium 9.2 Troponin I High Sens 13 Radiography Diagnostic Testing: Clinical Impression(s) from Imaging Studies Chest X-Ray 11/10/23 13:45 IMPRESSION: Degenerative changes, as described above. No demonstrated acute cardiopulmonary process. Electronically Signed: Ifeanyi Murillo MD at 14:39 EST Reading Location ID and State: [facility] / [place] , Service support , EKG Initial EKG: Attestation: I personally reviewed and interpreted this EKG as follows: Interpretation: Sinus Rhythm and No Acute Injury Pattern Comments: Sinus rhythm with an occasional PVC. Rate 85. No evidence of dysrhythmias or ischemia. Differential Diagnosis Chest pain/SOB: pulmonary embolism, ACS, CHF and COPD Management Discussion w/another healthcare provider: Other (Dr Guardado, ED provider) Treatment and Re-Evaluation :: Lab results and imaging reviewed. CBC showed a normal white blood cell count of 10.6, hemoglobin 13.3, platelets 317. Chemistry was unremarkable. High-sensitivity troponin was negative at 13. Chest x-ray was normal with no acute cardiopulmonary process. Upon reevaluation, patient awake and alert. Denies pain at this time. Discussed lab results and imaging. Discussed plan to discharge home with follow-up with primary care provider. Patient encouraged to monitor and log symptoms at home including times and activities associated with occurrence. Patient instructed if feeling dizzy to immediately sit or lay down to avoid injury. Patient agreeable with plan and will be discharged home. <Dr. Raul Guardado MD - Last Filed: 11/10/23 14:51> [facility] MDM Narrative Medical decision making narrative: Medical decision making narrative: Patient placed on bus driver/monitor. IV line initiated. Labwork obtained to evaluate for leukocytosis, anemia, and electrolyte derangement. Chest x-ray obtained to evaluate for acute lung pathology, cardiac size, or mediastinal abnormality. I have personally performed a face to face assessment of the patient and have reviewed the KEVIN Note. I performed a substantive portion of the visit including all aspects of the following. My biggs findings include: History is [68-year-old with atypical morning left axillary pain. No history of cardiac disease. No prior cardiac cath. Currently she is symptom-free. No history of PE or recent risk factors. No leg pain or swelling. No pleuritic pain.] Exam is [she is 8-year-old female no acute distress vital signs stable afebrile. Pulse ox 100% on room air no signs hypoxia. H EENT exam unremarkable. Neck nontender. Lungs clear to auscultation. Heart regular rate and rhythm rate about 95 no murmur. Chest wall and ribs nontender. Her left axilla there is no redness, swelling, discoloration or rash. No bony tenderness or deformity. No reproducible pain. Abdomen soft nontender. Moving all 4 extremities. Nontender no edema. Back exam nontender. Neurologically she is awake and alert no focal motor deficits.] Medical Decision Making [68-year-old female with atypical, nonexertional chest pain. Undergo cardiac workup.] Other additions or changes: Chest x-ray unremarkable. EKG unremarkable. CBC normal. Chemistries unremarkable. Troponin 13. I do not think we need 2-hour troponin because he has had the symptoms for weeks. Patient be discharged home with outpatient follow-up. Repeat exam she is doing well at 2:45 PM.] History & Record Review Discussion w/independent historian: Patient Lab Data Attestation: I reviewed the patient's lab results. Lab results narrative: CBC normal. White count of 10. H&H 13 and 41. Platelets 317. Labs: Laboratory Results - last 24 hr 11/10/23 13:35 WBC 10.6 RBC 4.48 Hgb 13.3 Hct 41.1 MCV 91.7 MCH 29.7 MCHC 32.4 RDW Std Deviation 44.5 H RDW Coeff of Bala 13.2 Plt Count 317 MPV 9.9 Immature Gran % (Auto) 0.200 Neut % (Auto) 67.8 Lymph % (Auto) 20.6 [place] % (Auto) 10.1 H Eos % (Auto) 0.7 Baso % (Auto) 0.6 Absolute Neuts (auto) 7.2 Absolute Lymphs (auto) 2.18 Nucleated RBC % 0 Sodium 140 Potassium 3.9 Chloride 108 H Carbon Dioxide 29.0 Anion Gap 3 L BUN 20 H Creatinine 0.86 Estim Creat Clear Calc 48.52 Est GFR (MDRD) Af Amer 85 Est GFR (MDRD) Non-Af 70 BUN/Creatinine Ratio 23.3 H Glucose 76 Calcium 9.2 Troponin I High Sens 13 Radiography Chest X-Ray - ED: 1 View, Read by ED Physician, Mediastinum, Bony Structures, No Acute Disease and Chronic Changes Diagnostic Testing: Clinical Impression(s) from Imaging Studies Chest X-Ray 11/10/23 13:45 IMPRESSION: Degenerative changes, as described above. No demonstrated acute cardiopulmonary process. Electronically Signed: Ifeanyi Murillo MD at 14:39 EST Reading Location ID and State: [facility] / [place] , Service support , Chest x-ray, portable, single view, interpreted myself shows no acute abnormality. Normal cardiac silhouette. Normal lung coles. No infiltrates. No effusions. Rhythm Strip Rhythm Strip: Sinus Rhythm Rate: 85 Ectopy: PVC(s) EKG Initial EKG: Attestation: I personally reviewed and interpreted this EKG as follows: Interpretation: Sinus Rhythm and No Acute Injury Pattern Comments: Normal sinus rhythm rate 85. No acute signs of OK or ischemia. Occasional PVCs. Discharge Plan Triage Chief Complaint: Chest Pain ED Provider: Raul Guardado Dx/Rx/DC Orders Prescriptions: No Action nifedipine 30 mg tablet extended release 30 mg PO DAILY ascorbic acid (vitamin C) 250 mg tablet 250 mg PO BID cyanocobalamin (vitamin B-12) 500 mcg tablet 500 mcg PO DAILY ferrous gluconate 236 mg (27 mg iron) tablet 236 mg PO DAILY esomeprazole magnesium 40 mg capsule,delayed release(DR/EC) 40 mg PO QAM Qty: 90 3RF fluconazole 100 mg tablet 100 mg PO DAILY Qty: 14 0RF amitriptyline 25 mg tablet 25 mg PO QHS Qty: 30 3RF calcium 600 mg Capsule 600 mg PO DAILY Multivitamin Women 50 Plus 8 mg iron-400 mcg-300 mcg Tablet 1 tab PO DAILY Primary Care Provider: Theo Ma Referrals: Theo Ma MD [Primary Care Provider] -
[2023-11-10 13:45] LABS: Absolute Lymphocyte Count 2.18 X10^3/uL (0.83-4.51); Absolute Neutrophil Count 7.2 X10^3/uL (2.0-7.7); Basophil# 0.06 X10^3/uL; Basophil% 0.6 % (0-1); Eosinophil# 0.07 X10^3/uL; Eosinophils% 0.7 % (0-5); Hematocrit 41.1 % (37-47); Hemoglobin 13.3 g/dL (12.0-15.0); Lymphocyte # 2.18 X10^3/ul (0.83-4.51); Lymphocyte % 20.6 % (19-41); Mean Corp Hgb Conc 32.4 g/dL (32-36); Mean Corpuscular Hgb 29.7 pg (27.0-32.0); Mean Corpuscular Volume 91.7 fL (81-99); Mean Platelet Vol. 9.9 fl (6.2-12.0); Monocyte# 1.07 X10^3/uL; Monocyte% 10.1 % (0-10); NRBC Flagged by Analyzer 0 % (0-5); Neutrophil # 7.18 X10^3/uL (2.7-7.7); Neutrophil % 67.8 % (47-70); Platelet Count 317 K/mm3 (150-450); RBC Distribution Width CV 13.2 % (11.6-14.6); RBC Distribution Width SD 44.5 fl (35.1-43.9); Red Blood Count 4.48 M/mm3 (4.2-5.4); White Blood Count 10.6 K/mm3 (4.4-11.0)
--- NOTE | 2023-11-10 13:45 | RAD_ITS ---
STUDY: X-RAY CHEST REASON FOR EXAM: Female, 68 years old. chest pain TECHNIQUE: Single AP portable view of the chest. COMPARISON: July 28, 2019 FINDINGS: The lungs are clear and expanded. There is no demonstrated pleural abnormality. Normal size heart. Normal mediastinum and alfredo. Normal visualized pulmonary arteries. There is atherosclerotic tortuosity of the aortic arch and descending thoracic aorta. There are diffuse degenerative changes of the visualized thoracic spine. Normal visualized ribs, clavicles, and shoulders. There is no demonstrated abnormality of the visualized soft tissue structures of the upper abdomen. RAD/Chest 1 View (Portable) IMPRESSION: Degenerative changes, as described above. No demonstrated acute cardiopulmonary process. Electronically Signed: Ifeanyi Murillo MD at 14:39 EST ,
[2023-11-10 14:13] LABS: Anion Gap 3 (5-15); BUN 20 mg/dL (7-18); BUN/Creat Ratio 23.3 RATIO (10-20); Calcium,Total 9.2 mg/dL (8.5-10.1); Chloride 108 mmol/L (98-107); Creatinine, Serum 0.86 mg/dL (0.55-1.02); EST Glomerular Filtration Rate 70 mL/min (>60); Est Glom Filt Rate - Afr Amer 85 mL/min (>60); Estimated Creatinine Clearance 48.52 ml/min; Glucose 76 mg/dL (74-106); Potassium 3.9 mmol/L (3.5-5.1); Sodium Level 140 mmol/L (136-145); Troponin-I HS 13 pg/mL (3.0-54.0); Troponin-I HS (w/2H Reflex) 13 pg/mL (3.0-54.0)
[2023-11-10 15:06] VITALS: BP 124/79; PULSE 78; RESP 16; TEMP 36.4; O2SAT 99
[2023-11-10 15:42] LABS: Reflex Troponin-HS? (from REC) Y
== END 2023-11-10 15:30 | disposition home or self-care (01) ==
PROVIDERS: Emergency Provider Emergency Medicine; PCP Family Medicine; Visit Provider Emergency Medicine
DX: R07.9 Chest pain, unspecified (principal); R06.02 Shortness of breath; R51.9 Headache, unspecified; R11.0 Nausea; Z87.891 Personal history of nicotine dependence
CPT/HCPCS: 71045; 80048; 84484; 85025; 93005; 99284

== ENCOUNTER 2024-02-05 12:15 | Day surgery (SDC) | payer MEDICARE, SELFPAY ==
--- NOTE | 2024-02-05 | IMM_PTH ---
PATIENT: LUIS FRAGA LOC: EN U#:[id number] AGE/SX: 68/F ROOM: RE02/05/[address]: Dr. Lavon Lewis DO : 1955 BED: DIS: 02/05/2024 SPEC #: [id number] RECD: 02/07/24 10:24 STATUS: DEBBIE REYazan #: [id number] DINORAH: 02/05/24 00:[address]: Lavon Lewis DEPT: IMMUNOHISTOCHEMISTRY RECD BY: Magen Trevizo ENTERED: 02/07/24 10:25 SP TYPE: IMMUNO OTHR DR: Dr. Theo Ma MD Tissues: A - Esophagus, NOS Procedures: P53 (initial) KI-67 (add) PHYSICIAN & INSTITUTION [place] [id number] SPECIMEN INFORMATION: Tissue Source: A- Distal esophagus biopsy Clinical Info: GERD, history of CREST syndrome, dysphagia, gastrojejunal ulcer, mayela infection, dizziness, Allen's esophagus Specimen Number: [id number] CPT code: 67960,09326 METHODOLOGY: Deparaffinized sections of prefer/formalin-fixed tissue or PAP/DQ stained slides are incubated with monoclonal/polyclonal antibodies/oligonucleotide probes. Localization is made via biotin free immunoperoxidase method. Appropriate controls are performed and reacted as expected. Results on target cell population are indicated in the following table: RESULTS: ANTIBODY / CLONE RESULT Block A P53 (DO-7) positive, wild type Ki-67 (30-9) positive, moderate These tests were developed and their performance characteristics determined by [facility]. They may not have been cleared or approved by the U.S. Food and Drug Administration. The FDA has determined that such clearance or approval is not necessary. The above immunohistochemical/dualISH markers are ordered and reviewed by the Pathologist. INTERPRETATION: A. Distal esophagus, biopsy: No evidence of dysplasia. AM/ 02/08/2024
[2024-02-05 12:45] VITALS: BP 150/98; PULSE 55; RESP 16; TEMP 36.2; O2SAT 98; BMI 23.4
[2024-02-05] MEDS: Lactated Ringers 1,000 ML 15 ML IV (12:52)
--- NOTE | 2024-02-05 13:30 | EGD_PTH ---
PATIENT: LUIS FRAGA LOC: EN U#:[id number] AGE/SX: 68/F ROOM: RE02/05/[address]: Dr. Lavon Lewis DO : 1955 BED: DIS: 02/05/2024 SPEC #: [id number] RECD: 02/05/24 16:01 STATUS: DEBBIE MARTÍN #: [id number] DINORAH: 02/05/24 13:[address]: Lavon Lewis DEPT: SURGICAL PATHOLOGY RECD BY: Maggie Gregory ENTERED: 02/06/24 09:24 SP TYPE: EGD BIOPSY [facility] DR: Dr. Theo Ma MD Tissues: A - Esophagus, NOS B - COLON BIOPSY Procedures: Special Stain Group I Surgery Specimen Level IV Alcian Blue/PAS (control) HEADER OPERATION: EGD with biopsies PRE-OP DIAGNOSIS: GERD, history of CREST syndrome, dysphagia, gastrojejunal ulcer, mayela infection, dizziness, Allen's esophagus TISSUE SUBMITTED: A- Distal esophagus biopsy, B- Anastomotic ulcer biopsy MICROSCOPIC DIAGNOSIS A. Distal esophagus, biopsy: Gastroesophageal junctional mucosa with mild chronic inflammation. Goblet cell metaplasia consistent with Allen's esophagus. See comment. B. Anastomotic ulcer, biopsy: Mucosal ulceration with associated acute and chronic inflammation. No evidence of malignancy. AM/ 02/07/2024 COMMENT A. Alcian blue/PAS stain with matched control supports the above diagnosis. There is no evidence of dysplasia. Immunohistochemistry ([id number]) for P53 and Ki-67 will be performed and results will be reported separately. MICROSCOPIC DESCRIPTION Slides are reviewed. GROSS DESCRIPTION A. Received in fixative is one container labeled with the patient's name and designated Distal esophagus biopsy. The specimen consists of multiple irregular fragments of light rutledge soft tissue that in aggregate measure 1.0 x 0.5 x 0.1 cm. The specimen is totally submitted in one cassette. B. Received in fixative is one container labeled with the patient's name and designated Anastomotic ulcer biopsy. The specimen consists of two irregular fragments of light rutledge soft tissue that in aggregate measure 0.7 x 0.6 x 0.1 cm. The specimen is totally submitted in one cassette. AM/ 02/06/2024 TC:? CPT:99607z2,28173
--- NOTE | 2024-02-05 14:05 | PCM.HP.BLA ---
History and Physical Date of Admission: 02/05/24 LUIS FRAGA, is a 68 F who presents to the office today for follow up. OV 5.15.24 pt reports continued symptoms from last visit; nausea in the morning that tapers off throughout the day. Pt reports diarrhea that began a week ago; reports 3-4 BM in the morning; denies blood in the stool. pt reports that she has been having an increase in stress in her personal life. Pt continues with esomeprazole. ROS Const Constitutional: Positive for fatigue and headache(s); No fever(s) or weight change ENT ENT: Positive for headache(s); No difficulty swallowing Gastro GI: Positive for abdominal pain, change in bowel habits, diarrhea, nausea/dyspepsia and vomiting; No belching, bloating, change in stool character, coffee ground emesis, constipation, cramping, heartburn, difficulty swallowing, feeling full early, excessive flatus, incontinent of stools, Vomiting blood/hematemesis, Blood in stool, loose stools, Black,tarry stools, pain with swallowing or other Musc Musculoskeletal: Positive for joint pain, back pain, joint swelling, restless legs and leg pain at night Skin Skin: Positive for dry skin and itchy eyes; No yellowing of the eye Neuro Neurology: Positive for headache(s) and restless legs Psych Psychiatric: Positive for anxiety and Positive for depression Endo Endocrine: Positive for fatigue; No weight change Aller/Imm Allergy/Immunologic: Positive for itchy eyes Rylan/Lymp Hematologic/Lymphatic: No easy bleeding or easy bruising Assessment and Plan Assessment and Plan (1) GERD (gastroesophageal reflux disease): Status: Chronic Plan: as above (2) History of CREST syndrome: Status: Chronic (3) Dysphagia: Status: Chronic (4) Gastrojejunal ulcer: Status: Acute Plan: 67 yr old female with nausea, GERD, dysphagia gastrojejunal anastomotic ulcers and Lorrie We reviewed her EGD results as well as labs (unremarkable) and CT (unremarkable) and esophagram (decreased motility, due to CREST) Heartburn now controlled since esomeprazole increased to 40 mg QAM Dysphagia is improved since esophageal stricture was dilated She tried esophageal manometry in the past but didn't tolerate it, likely has esophageal dysmotility due to CREST, could consider trying manometry later Will treat Lorrie with fluconazole We need to treat her anastomotic ulcers with misoprostal, will try again to get that approved Repeat EGD (5) Lorrie infection: Status: Acute Plan: She was treated with fluconazole and her odynophagia is a lot better. (6) Dizziness: Status: Acute Plan: I think her dizziness is mostly associated with stress from her family. However she is getting cardiac workup. (7) Barretts esophagus: Status: Acute Plan: She was noted to have intestinal metaplasia on her previous endoscopy. She we will perform surveillance endoscopy to evaluate her Allen's esophagus. I have examined the patient and the H&P has been reviewed. There are no clinical changes since date of exam.
[2024-02-05 14:44] VITALS: BP 113/72; BP 150/98; PULSE 65; RESP 14; TEMP 36.8; O2SAT 99
--- NOTE | 2024-02-05 14:48 | OP.EGD_ITS ---
Patient Name: Letty Londono Procedure Date: 02/05/2024 2:25 PM Date of : 1955 Age: 68 Procedure: Upper GI endoscopy Indications: Epigastric abdominal pain, Heartburn, Follow-up of Allen's esophagus Providers: DO Mary Anguiano MD: Theo Ma MD Medicines: Monitored Anesthesia Care Patient Profile: Patient has symptoms of acute epigastric abdominal pain and chronic heartburn. Complications: No immediate complications. Procedure: Pre-Anesthesia Assessment: - Prior to the procedure, a History and Physical was performed, and patient medications and allergies were reviewed. The patient is competent. The risks and benefits of the procedure and the sedation options and risks were discussed with the patient. All questions were answered and informed consent was obtained. Patient identification and proposed procedure were verified by the physician. Mental Status Examination: normal. Prophylactic Antibiotics: The patient does not require prophylactic antibiotics. Prior Anticoagulants: The patient has taken no anticoagulant or antiplatelet agents. ASA Grade Assessment: II - A patient with mild systemic disease. After reviewing the risks and benefits, the patient was deemed in satisfactory condition to undergo the procedure. The anesthesia plan was to use monitored anesthesia care (MAC). Immediately prior to administration of medications, the patient was re-assessed for adequacy to receive sedatives. The heart rate, respiratory rate, oxygen saturations, blood pressure, adequacy of pulmonary ventilation, and response to care were monitored throughout the procedure. The physical status of the patient was re-assessed after the procedure. After obtaining informed consent, the endoscope was passed under direct vision. Throughout the procedure, the patient's blood pressure, pulse, and oxygen saturations were monitored continuously. The gastroscope was introduced through the mouth, and advanced to the second part of duodenum. The upper GI endoscopy was accomplished without difficulty. The patient tolerated the procedure well. 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 The maximum longitudinal extent of these mucosal changes was 2 cm in length. Mucosa was biopsied with a cold forceps for histology in a targeted manner at intervals of 1 cm in the lower third of the esophagus. One specimen bottle was sent to pathology. 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 The gastrojejunal anastomosis was characterized by erosion, erythema, friable mucosa and ulceration. This was traversed. The jejunojejunal anastomosis was characterized by edema, erosion, erythema and ulceration. The pcvyortq-vy-gbheksp limb was examined. The excluded stomach was not examined as it could not be found. Impression: - Esophageal mucosal changes secondary to established short-segment Allen's disease. Biopsied. - Bailey-en-Y gastrojejunostomy with gastrojejunal anastomosis characterized by erosion, erythema, friable mucosa and ulceration. Recommendation: - Await pathology results. - Continue present medications. Procedure Code(s): --- Professional --- 94807, Esophagogastroduodenoscopy, flexible, transoral; with biopsy, single or multiple CPT copyright 2021 [employer]. All rights reserved. The codes documented in this report are preliminary and upon tobacco checkout clerk review may be revised to meet current compliance requirements. Lavon Lewis DO 02/05/2024 2:48:18 PM This report has been signed electronically. Number of Addenda: 0 Note Initiated On: 02/05/2024 2:25 PM
--- NOTE | 2024-02-05 14:48 | OP.CCLET_ITS ---
02/05/2024 Theo Ma MD Re : Upper GI endoscopy procedure for Letty Londono Dear Dr. Ma This procedure was performed on Monday, February 05, 2024. My impressions and recommendations are as follows: Impressions : - Esophageal mucosal changes secondary to established short-segment Allen's disease. Biopsied. - Bailey-en-Y gastrojejunostomy with gastrojejunal anastomosis characterized by erosion, erythema, friable mucosa and ulceration. Recommendations : - Await pathology results. - Continue present medications. My findings are described in the full procedure note, which is enclosed. If I can be of further assistance, please feel free to contact me at . Sincerely, Lavon Lewis, 02/05/2024 2:48:18 PM This report has been signed electronically.
[2024-02-05 14:49] VITALS: BP 115/87; BP 150/98; PULSE 63; RESP 14; O2SAT 100
[2024-02-05 14:55] VITALS: BP 134/76; BP 150/98; PULSE 55; RESP 14; TEMP 36.7; O2SAT 100
[2024-02-05 15:20] VITALS: BP 150/98
== END 2024-02-05 15:21 | disposition home or self-care (01) ==
LOC: EN 12:22 → AC 12:27
PROVIDERS: PCP Family Medicine; Referring Provider Family Medicine; Visit Provider Internal Medicine Gastroenterology
PROC: 0DJ08ZZ Inspection of Upper Intestinal Tract, Via Natural or Artificial Opening Endoscopic (ICD-10-PCS; CPT 43235; principal; 2024-02-05 13:25)
DX: K22.70 Barrett's esophagus without dysplasia (principal); K21.9 Gastro-esophageal reflux disease without esophagitis; J45.909 Unspecified asthma, uncomplicated; E78.00 Pure hypercholesterolemia, unspecified; Z79.899 Other long term (current) drug therapy; Z87.891 Personal history of nicotine dependence
CPT/HCPCS: 43239; 88305; 88312; 88341; 88342; J7120; J2405

== ENCOUNTER 2024-06-28 23:31 | Emergency (ER) | payer MEDICARE, SELFPAY ==
[2024-06-28 23:31] VITALS: BP 170/88; PULSE 68; RESP 18; TEMP 36.1; O2SAT 99; BMI 23.6
--- NOTE | 2024-06-28 23:44 | RAD_ITS ---
INDICATION: chest pain EXAMINATION/TECHNIQUE: X-RAY - XR Chest 1 View COMPARISON: Prior study dated: 11/10/2023 FINDINGS: LINES/DEVICES: None. LUNGS: The lungs are well expanded. No consolidation, edema or effusion. No pneumothorax. MEDIASTINUM AND CARDIOVASCULAR STRUCTURES: Cardiac silhouette not enlarged. Central airways and mediastinal contour are unremarkable. BONES AND SOFT TISSUES: No acute abnormality. RAD/Chest 1 View (Portable) IMPRESSION: No acute pulmonary finding. Electronically Signed: Patrick Jacques MD at 0:13 EDT ,
--- NOTE | 2024-06-28 23:44 | EKG12_ITS ---
Test Reason : DYSRHYTHMIA Blood Pressure : / mmHG Vent. Rate : 066 BPM Atrial Rate : 066 BPM P-R Int : 144 ms QRS Dur : 080 ms QT Int : 426 ms P-R-T Axes : 000 039 032 degrees QTc Int : 446 ms Sinus rhythm with Premature atrial complexes Otherwise normal ECG Confirmed by Shubham Allen ([id number]), production editor SANTIAGO CHRISTINE ([id number]) on 06/30/2024 11:45:42 AM Referred By: RENAN Confirmed By:Shubham Allen
--- NOTE | 2024-06-28 23:45 | ED.VIS.CHEST ---
HPI History of Present Illness Chief Complaint: Chest Pain Informant: patient Narrative Narrative: 68-year-old female states she has been having chest discomfort for the last 12 hours or so. She is a started while she was outside doing some fall landscape cleanup and has not gone away all day. She has some type of grabbing or squeezing sensation substernal and then she has some occasional 4-5-second in duration severe discomfort episodes that have been frequent but the underlying discomfort is not gone away. Associated with some nausea. No diaphoresis or near syncope or palpitations. No dyspnea. She has some tightness across her upper back with this but no radiation into her jaw or down and arm. No abdominal symptoms other than the nausea. She has no history of heart disease that she knows of, but she had an episode similar to this back in November that was not as severe as this, and her doctor had her do an echo and a stress test, she had that in [facility] about 2 weeks ago, was told it was unremarkable except for some skipped beats. She had a remote DVT several decades ago associated with a . No history of clotting disorder. No recent immobilization travel hospitalization or surgery. States she took a nitroglycerin for this discomfort prior to coming here and it did not help at all so she skipped taking anymore. No other treatments prior to arrival. [facility] Medical History Migraine headache History of echocardiogram History of stress test Hypertension High cholesterol Heartburn History of scleroderma Wears glasses Post-menopausal Alcohol use Low iron Back pain Injury of head and neck Gastric reflux Former smoker Shortness of breath on exertion Epigastric pain Renal cyst Pure hypercholesterolemia Postinflammatory pulmonary fibrosis Internal hemorrhoids Hemorrhage of gastrointestinal tract Esophagitis Diverticulosis of colon Barretts esophagus Asthma Home Medications ?Medication ?Instructions ?Recorded ?Last Taken ?Type ascorbic acid (vitamin C) 250 mg 250 mg PO BID 06/08/22 Unknown History tablet cyanocobalamin (vitamin B-12) 500 500 mcg PO DAILY 06/08/22 Unknown History mcg tablet ferrous gluconate 236 mg (27 mg 236 mg PO DAILY 06/08/22 Unknown History iron) tablet nifedipine 30 mg tablet,extended 30 mg PO DAILY 06/08/22 Unknown History release calcium 600 mg capsule 600 mg PO DAILY 10/02/22 Unknown History asuczbwa-yqxv-ffys 8 mg-folic 400 1 tab PO DAILY 10/02/22 Unknown History mcg-K 50 mcg-lutein 300 mcg tablet (Multivitamin Women 50 Plus) esomeprazole magnesium 40 mg 40 mg PO DAILY #60 caps 02/05/24 Unknown Rx capsule,delayed release sucralfate 1 gram tablet 1 g PO BID #60 tabs 06/19/24 Unknown Rx atorvastatin 40 mg tablet 40 mg PO QHS cholesterol 06/29/24 Unknown History Allergy/AdvReac Type Severity Reaction Status Date / Time sulfamethoxazole (From Allergy Anaphylaxis Verified 02/05/24 12:43 Bactrim) trimethoprim (From Bactrim) Allergy Anaphylaxis Verified 02/05/24 12:43 sertraline (From Zoloft) AdvReac Other Verified 02/05/24 12:43 Surgical History History of Paulina fundoplication Hx of tubal ligation Hx of appendectomy Hx of colonoscopy History of esophagogastroduodenoscopy (EGD) Social History Smoking Status: Former smoker quit date: 03/29/12 alcohol intake: current alcohol intake frequency: holidays/special occasions only ROS ROS ED Constitutional Constitutional ED: Denies chills, fever(s) or sweats Eyes Eyes: Denies change in vision or diplopia ENT ENT ED: Denies rhinorrhea or sore throat Cardiovascular Cardiovascular: Reports chest pain; Denies palpitations Respiratory/Chest Respiratory/Chest: Denies cough or dyspnea Gastrointestinal Gastrointestinal: Reports nausea; Denies abdominal pain, diarrhea or vomiting Genitourinary Genitourinary ED: Denies dysuria or hematuria Musculoskeletal Musculoskeletal: Reports back pain; Denies neck pain Integumentary Denies abscess or rash Neurologic Neurologic: Denies headache(s), paresthesias or weakness EXAM Physical Exam Const Vital Signs: 06/28/24 23:31 06/28/24 23:58 06/29/24 00:00 Temperature 97 F L Temperature Source Temporal Pulse Rate 68 Respiratory Rate 18 Respiratory Effort Normal Non-Labored Blood Pressure 170/88 H Blood Pressure Mean 115 Pulse Ox 99 Oxygen Delivery Method Room Air Room Air 06/29/24 00:31 06/29/24 01:00 06/29/24 02:00 Temperature Temperature Source Pulse Rate 61 56 L 55 L Respiratory Rate 11 L 14 15 Respiratory Effort Blood Pressure 139/83 H 149/98 H 108/66 Blood Pressure Mean 101 115 80 Pulse Ox 98 97 94 Oxygen Delivery Method Room Air Room Air Room Air 06/29/24 02:54 Temperature 97.8 F Temperature Source Pulse Rate 65 Respiratory Rate 18 Respiratory Effort Blood Pressure 110/77 Blood Pressure Mean 88 Pulse Ox 99 Oxygen Delivery Method Positive well nourished and well developed General Appearance ED: well developed and NAD HEENT Reports moist mucous membranes normocephalic and atraumatic Eyes PERRL and EOMs intact bilaterally Neck full ROM and supple Chest Wall inspection of chest normal and palpation of chest normal Resp normal respiratory effort and clear to auscultation bilaterally Cardio regular rate, regular rhythm and no murmurs GI non-tender and non-distended Auscultation: normoactive bowel sounds Palpation: soft Back/Spine no CVA tenderness General Back: other FROM Extremity normal to inspection General Extremety ED: Negative for edema, pulses abnormal or tenderness General Extremity: Negative for edema or pulses abnormal Neuro oriented x3, CN's II-XII intact bilaterally and no sensory deficits noted Sensorium / Orientation: awake and alert Motor Exam: strength 5/5 throughout Psych Mood & Affect: anxious Skin no rashes or lesions noted and no wounds Heart Score History: Slightly/Non-Suspicious ECG: Normal Age: >/= 65 years Risk Factors: 1 or 2 Risk Factors Troponin: </= Normal Limit Score: 3 MDM MDM MDM Narrative Medical decision making narrative: EKG is normal. While waiting for enzymes and labs to come back including a D-dimer which turned out to be normal ruling out pulmonary embolus and DVT, patient was given morphine which helped some but she was still having a pleuritic component in her xiphoid area of some discomfort. 1 view chest x-ray on my interpretation is normal showing a narrow mediastinum and no acute pulmonary abnormalities. While waiting for the second troponin draw she was given a GI cocktail. Her delta returned at 16, just barely elevated compared with 13, essentially a negative delta. The GI cocktail helped a little. She is feeling and doing well with normal vital signs stable for discharge home and close outpatient follow-up. Lab Data Attestation: I reviewed the patient's lab results. Labs: Laboratory Results - last 24 hr 06/28/24 06/29/24 23:54 01:55 WBC 10.5 RBC 4.16 L Hgb 12.2 Hct 37.9 MCV 91.1 MCH 29.3 MCHC 32.2 RDW Std Deviation 45.0 H RDW Coeff of Bala 13.3 Plt Count 277 MPV 10.6 Immature Gran % (Auto) 1.300 H Neut % (Auto) 58.1 Lymph % (Auto) 26.9 [place] % (Auto) 11.3 H Eos % (Auto) 1.9 Baso % (Auto) 0.5 Absolute Neuts (auto) 6.1 Absolute Lymphs (auto) 2.82 Nucleated RBC % 0 D-Dimer Quant (PE/DVT) 0.41 Sodium 137 Potassium 3.9 Chloride 105 Carbon Dioxide 28.0 Anion Gap 4 L BUN 18 Creatinine 0.64 Estim Creat Clear Calc 51.65 Est GFR (MDRD) Af Amer 117 Est GFR (MDRD) Non-Af 97 BUN/Creatinine Ratio 28.0 H Glucose 98 Calcium 9.2 Troponin I High Sens 13 16 Radiography Diagnostic Testing: Clinical Impression(s) from Imaging Studies Chest X-Ray 06/28/24 23:44 IMPRESSION: No acute pulmonary finding. Electronically Signed: Patrick Jacques MD at 0:13 EDT Reading Location ID and State: [facility] / [place] Tel , Service support , Rhythm Strip Rhythm Strip: Sinus Rhythm Rate: 65 Ectopy: PAC(s) EKG Initial EKG: Attestation: I personally reviewed and interpreted this EKG as follows: Interpretation: Sinus Rhythm and No Acute Injury Pattern Comments: Normal EKG except for PAC Discharge Plan Triage Chief Complaint: Chest Pain ED Provider: Ayaz Sparks Dx/Rx/DC Orders Clinical Impression: Chest pain, unspecified Instructions: ED Chest Pain, Noncardiac Prescriptions: No Action nifedipine 30 mg tablet extended release 30 mg PO DAILY ascorbic acid (vitamin C) 250 mg tablet 250 mg PO BID cyanocobalamin (vitamin B-12) 500 mcg tablet 500 mcg PO DAILY ferrous gluconate 236 mg (27 mg iron) tablet 236 mg PO DAILY calcium 600 mg Capsule 600 mg PO DAILY Multivitamin Women 50 Plus 8 mg iron-400 mcg-300 mcg Tablet 1 tab PO DAILY atorvastatin 40 mg tablet 40 mg PO QHS esomeprazole magnesium 40 mg capsule,delayed release(DR/EC) 40 mg PO DAILY Qty: 60 3RF sucralfate 1 gram tablet 1 g PO BID Qty: 60 1RF Primary Care Provider: Theo Ma Referrals: Theo aM MD [Primary Care Provider] - 3-5 Days Print Language: German Disposition Disposition: Home, Self Care Discharge Date/Time: 06/29/24 02:55
[2024-06-28] MEDS: Ondansetron 4 MG/2 ML Vial IV (23:55)
[2024-06-28] MEDS: Morphine 4 MG/ML Syringe IV (23:56)
[2024-06-29 00:23] LABS: D-Dimer Quantitative (DVT/PE) 0.41 FEU/ug/m (0.27-0.49)
[2024-06-29 00:31] VITALS: BP 139/83; PULSE 61; RESP 11; O2SAT 98
[2024-06-29 00:31] LABS: Anion Gap 4 (5-15); BUN 18 mg/dL (7-18); Calcium,Total 9.2 mg/dL (8.5-10.1); Chloride 105 mmol/L (98-107); Creatinine, Serum 0.64 mg/dL (0.55-1.02); EST Glomerular Filtration Rate 97 mL/min (>60); Est Glom Filt Rate - Afr Amer 117 mL/min (>60); Estimated Creatinine Clearance 51.65 ml/min; Glucose 98 mg/dL (74-106); Potassium 3.9 mmol/L (3.5-5.1); Sodium Level 137 mmol/L (136-145); Troponin-I HS (w/2H Reflex) 13 pg/mL (3.0-54.0)
[2024-06-29 00:42] LABS: Absolute Lymphocyte Count 2.82 X10^3/uL (0.83-4.51); Absolute Neutrophil Count 6.1 X10^3/uL (2.0-7.7); Basophil# 0.05 X10^3/uL; Basophil% 0.5 % (0-1); Eosinophils% 1.9 % (0-5); Hematocrit 37.9 % (37-47); Hemoglobin 12.2 g/dL (12.0-15.0); Lymphocyte # 2.82 X10^3/ul (0.83-4.51); Lymphocyte % 26.9 % (19-41); Mean Corp Hgb Conc 32.2 g/dL (32-36); Mean Corpuscular Hgb 29.3 pg (27.0-32.0); Mean Corpuscular Volume 91.1 fL (81-99); Mean Platelet Vol. 10.6 fl (6.2-12.0); Monocyte# 1.19 X10^3/uL; Monocyte% 11.3 % (0-10); NRBC Flagged by Analyzer 0 % (0-5); Neutrophil # 6.09 X10^3/uL (2.7-7.7); Neutrophil % 58.1 % (47-70); Platelet Count 277 K/mm3 (150-450); RBC Distribution Width CV 13.3 % (11.6-14.6); Red Blood Count 4.16 M/mm3 (4.2-5.4); White Blood Count 10.5 K/mm3 (4.4-11.0)
[2024-06-29 01:00] VITALS: BP 149/98; PULSE 56; RESP 14; O2SAT 97
[2024-06-29] MEDS: Mag Hydrox/Al Hydrox/Simeth 30 ML UDC PO (01:10)
[2024-06-29] MEDS: Lidocaine 2% Viscous15 ML UDC 15 ML PO (01:10)
[2024-06-29 02:00] VITALS: BP 108/66; PULSE 55; RESP 15; O2SAT 94
[2024-06-29 02:09] LABS: Reflex Troponin-HS? (from REC) Y
[2024-06-29 02:32] LABS: Troponin-I HS 16 pg/mL (3.0-54.0)
[2024-06-29 02:54] VITALS: BP 110/77; PULSE 65; RESP 18; TEMP 36.6; O2SAT 99
== END 2024-06-29 02:55 | disposition home or self-care (01) ==
PROVIDERS: Emergency Provider Emergency Medicine; PCP Family Medicine; Visit Provider Emergency Medicine
DX: R07.9 Chest pain, unspecified (principal); E78.00 Pure hypercholesterolemia, unspecified; I10 Essential (primary) hypertension; K21.9 Gastro-esophageal reflux disease without esophagitis; Z79.899 Other long term (current) drug therapy; Z87.891 Personal history of nicotine dependence
CPT/HCPCS: 71045; 80048; 84484; 85025; 85379; 93005; 96374; 96375; 96376; 99284; A4216; J2405

== ENCOUNTER → 2025-03-04 | Outpatient (CLI) | payer MEDICARE, SELFPAY ==
[2025-03-04 09:58] LABS: AST(SGOT) 22 U/L (<=31); Alanine Aminotransfer ALT/SGPT 28 U/L (<=34); Albumin, Serum 4.2 g/dL (3.4-4.8); Alkaline Phosphatase 111 U/L (35-104); Bilirubin, Direct 0.15 mg/dL (0.00-0.30); Cholesterol 195 mg/dL (<=200); High Density Lipoprotein 101 mg/dL; Low Density Lipoprotein Calc. 77 mg/dL; Protein, Total 7.1 g/dL (5.9-8.4); Total Bilirubin 0.42 mg/dL (0.00-1.30); Triglycerides 84 mg/dL; Very Low Density Lipoprotein 17 mg/dL (5-40); cholesterol:hdl ratio screen 1.93
== END | disposition home or self-care (01) ==
LOC: LAB 08:36
PROVIDERS: PCP Family Medicine; Referring Provider Student in an Organized Health Care Education/Training Program; Visit Provider Student in an Organized Health Care Education/Training Program
DX: E78.5 Hyperlipidemia, unspecified (principal)
CPT/HCPCS: 36415; 80061; 80076